=== PATIENT | female | born 1960 | race Caucasian/White ===

== ENCOUNTER 2021-02-13 11:04 | Emergency (ER) | payer MEDICARE, MEDICAID, SELFPAY ==
--- NOTE | ~2021-02-13 | CT_ITS ---
EXAMINATION: CT HEAD WITHOUT CONTRAST CLINICAL INFORMATION: Seizure COMPARISON: None TECHNIQUE: Contiguous axial imaging was performed from the skull base to vertex without intravenous administration of contrast. This CT examination was performed using dose optimization techniques as appropriate, variously including the following: *Automated exposure control *Adjustment of mA and/or kV according to patient size (this includes techniques or standardized protocols for targeted exams where dose is matched to indication/reason for exam; i.e. extremities or head) *Use of iterative reconstruction technique DLP: 690 mGy-cm FINDINGS: There is no evidence of acute intracranial hemorrhage or territorial infarction. No abnormal mass effect or midline shift is seen. Parry to white matter differentiation is well preserved. No extra-axial fluid collections are identified. The ventricles are normal in size. There is no abnormal attenuation within the brain parenchyma. The osseous structures and soft tissues are normal. The mastoid air cells and visualized portions of the paranasal sinuses are well aerated. CT/CT head/brain wo con IMPRESSION: Unremarkable exam.
--- NOTE | ~2021-02-13 | XR_ITS ---
EXAMINATION: XR CHEST CLINICAL INFORMATION: Seizure COMPARISON: None TECHNIQUE: Frontal view of the chest was obtained. FINDINGS: The cardiac and mediastinal contours are normal. The lungs are clear. There is no pleural effusion or pneumothorax. There are degenerative changes of the spine. XR/XR chest 1V IMPRESSION: Unremarkable examination.
[2021-02-13 11:11] VITALS: BP 131/77; PULSE 68; PULSE 79; RESP 16; TEMP 36.8; O2SAT 98; BMI 43.9
--- NOTE | 2021-02-13 11:18 | ECG_ITS ---
Test Reason : chest pain Blood Pressure : / mmHG Vent. Rate : 071 BPM Atrial Rate : 071 BPM P-R Int : 162 ms QRS Dur : 084 ms QT Int : 398 ms P-R-T Axes : 024 040 059 degrees QTc Int : 432 ms Normal sinus rhythm Normal ECG No previous ECGs available Referred By: Selene Morfin Electronically Signed By:MARILY RODRIGUEZ MD
--- NOTE | 2021-02-13 11:23 | ED.GENADULT ---
HPI - General Adult General Chief complaint: Chest Pain Stated complaint: chest pain/confusion Time Seen by Provider: 02/13/21 11:20 Source: patient and EMS Mode of arrival: EMS Limitations: no limitations History of Present Illness HPI narrative: 60-year-old female brought in by ambulance for evaluation of feeling impending seizure. This is a 60-year-old female history of hypertension, diabetes, recently had 1st episode of tonic-clonic seizure at different hospital, patient reportedly had CPR at this hospital for 2 minutes, patient was sent home care for twice a day. Patient felt okay until this morning patient feeling his seizure is going to happen. Patient has no headache, no fever, no chills, no chest pain, no shortness of breath. Patient also declined head trauma, drinking alcohol. Related Data Previous Rx's Medication Instructions Recorded metformin 500 mg tablet 500 mg PO BID #60 tab 08/31/20 lisinopril 10 mg tablet 10 mg PO DAILY #30 tab 11/26/20 sertraline 50 mg tablet 50 mg PO DAILY #30 tab 01/13/21 Lunesta 2 mg tablet (eszopiclone) 2 mg PO BEDTIME PRN #30 tab NS 01/14/21 buspirone 10 mg tablet 10 mg PO TID #90 tab 01/21/21 ibuprofen 600 mg tablet 600 mg PO TID PRN #20 tab 02/13/21 lorazepam 0.5 mg tablet (Ativan) 0.5 mg PO TID PRN #14 tab 02/13/21 Allergies Allergy/AdvReac Type Severity Reaction Status Date / Time No Known Allergies Allergy Verified 01/13/21 22:57 Review of Systems Review of Systems: All other systems are reviewed and are negative Constitutional: Reports as per HPI and Reports no additional constitutional complaints Eyes: Reports as per HPI and Reports no additional eye complaints Reports system reviewed and no additional complaints, except as documented Cardiovascular: Reports as per HPI and Reports no additional cardiovascular complaints Respiratory: Reports as per HPI and Reports no additional respiratory complaints Gastrointestinal: Reports as per HPI and Reports no additional gastrointestinal complaints Genitourinary: Reports no additional female genitourinary complaints Musculoskeletal: Reports no additional musculoskeletal complaints Skin/Breast: Reports system reviewed and no additional complaints, except as docu Psychiatric: Reports no additional psychiatric complaints Endocrine: Reports no additional endocrine complaints Hematologic/Lymphatic: Reports no additional hematologic/lymphatic complaints Allergic/Immunologic: Reports no additional allergic/immunologic complaints Reports system reviewed and no additional complaints, except as documented and Reports Abnormal speech present [facility] Past Medical History Medical History Essential hypertension Generalized anxiety disorder Insomnia Morbid obesity Type 2 diabetes mellitus without complication, without long-term current use of insulin Surgical History History of back surgery Status post open reduction and internal fixation (ORIF) of fracture Family History Family History Other Unknown family medical history Social History Social History Housing: House Alcohol intake: never Patient Tobacco Use Status: Never used Tobacco Advance Directives: Yes Advance Directives Information Provided: No Advance Directives on File: No Patient : No Current occupational status: disabled Physical Exam Vital Signs: Vital Signs: Last Vital Signs Temp 98.2 F 02/13/21 11:11 Pulse 79 02/13/21 11:11 Resp 16 02/13/21 11:11 BP 131/77 02/13/21 11:11 Pulse Ox 98 02/13/21 11:11 Body Mass Index 43.9 Vital signs have been reviewed as appeared to be correct. Blood pressure normal. Heart rate normal. Respiration rate normal. Temperature normal. Oxygen saturation normal. Appearance: Alert. Oriented X3. No acute distress. Head: Normal external exam. Normocephalic. Atraumatic. No Junior signs noted. No raccoon eyes noted Eyes: PERRLA. EOMI. Conjunctiva and sclera normal. Eyelids normal. ENT: TM's Normal. Pharynx normal. Uvula midline. Moist mucous membranes. No trismus noted. No drooling noted. No muffled voice noted. Neck: Normal inspection. Neck supple. FROM. No adenopathy. Thyroid Normal. No meningeal signs. No neck mass noted. CVS: Normal heart rate and rhythm. Heart sound normal. No murmurs noted. Pulses normal throughout. Respiratory: No respiratory distress. Painless inspiration. Breath sounds normal. No wheezes/rales/rhonchi noted. Chest with reproducible tenderness diffusely on the chest. No accessory muscle usage noted or decreased air movement noted. Abdomen: Soft and nontender. Bowel sounds normal in all 4 quadrants. No distention noted. No organomegaly noted. No visible injury noted. Back: No CVA tenderness. Full range of motion noted. Skin: Skin warm and dry. Normal skin color. Normal skin turgor. No rashes/lesions/lacerations noted. Extremities: No lower extremity edema. Extremities exhibit normal range of motion. Extremities nontender. Neuro: Oriented X 3. Cranial nerve exam: II-XII are grossly intact No motor deficit. No sensory deficit. Reflexes normal. Course Course Course Narrative: 60-year-old female presented for evaluation of recently diagnosed seizure. Patient never had seizure today, patient was very anxious that is controlled with Ativan in the emergency department, patient has unremarkable workup including cardiac and neurological, patient was instructed to continue with Keppra as an outpatient, will add few pills of Ativan to help patient's anxiety. Patient been having also chest contusion from the recent CPR was performed on the patient patient was instructed to take ibuprofen and Tylenol. Medical Decision Making Medical Records Medical records reviewed: Yes I reviewed the patient's medical records. Lab Data Lab results reviewed: Yes I reviewed the patient's lab results. Result diagrams: 02/13/21 11:24 02/13/21 11:24 Labs: Lab Results 02/13/21 02/13/21 02/13/21 Range/Units 11:24 11:24 11:24 WBC 6.6 (4.8-10.8) X10*3/uL RBC 4.81 (4.20-5.50) X10*6/uL Hgb 13.7 (12.0-16.0) g/dl Hct 41.5 (37.0-47.0) % MCV 86.3 (80.0-98.0) fL MCH 28.5 (27.0-33.0) pg MCHC 33.0 (31.0-35.0) g/dl RDW 12.9 (11.0-16.0) % Plt Count 239 (160-400) X10*3/uL MPV 10.2 (9.4-12.3) fL Immature Gran % (Auto) 0.3 (0.0-0.4) % Neut % (Auto) 60.0 (45-73) % Lymph % (Auto) 30.7 (20-40) % Mcintosh % (Auto) 8.2 (2-11) % Eos % (Auto) 0.5 (0-4) % Baso % (Auto) 0.3 (0-2) % Lymph # (Auto) 2.0 (1.2-4.9) X10*3/uL Mcintosh # (Auto) 0.5 (0.1-1.2) X10*3/uL Eos # (Auto) 0.0 (0.0-0.4) X10*3/uL Baso # (Auto) 0.0 (0.0-0.2) X10*3/uL Abs Immat Gran (auto) 0.02 (0.00-0.03) X10*3/uL Absolute Neuts (auto) 3.98 (2.0-8.3) x10*3/uL Absolute Nucleated RBC 0.000 (0.0-0.012) X10*3/uL Nucleated RBC % (auto) 0.0 (0.0-0.2) /100WBC Sodium 135 (135-145) mmol/L Potassium 4.4 (3.3-5.1) mmol/L Chloride 101 (96-108) mmol/L Carbon Dioxide 25 (22-29) mmol/L Anion Gap 13 (12-20) BUN 15 (9-16) mg/dL Creatinine 0.82 (0.5-1.4) mg/dL Estim Creat Clear Calc 84.7 Estimated GFR > 60 Random Glucose 118 H (60-115) mg/dL Calcium 9.6 (8.4-10.2) mg/dL Total Bilirubin 0.3 (0.0-1.0) mg/dL Direct Bilirubin < 0.2 (0.0-0.5) mg/dL AST 34 H (5-31) U/L ALT 85 H (0-31) U/L Alkaline Phosphatase 76 (39-117) U/L Troponin I High Sens Cancelled B-Natriuretic Peptide (<100) pg/mL Total Protein 7.5 (6.5-8.0) g/dL Albumin 4.6 (3.5-5.0) g/dL Lipase 36 (8-78) U/L COVID-19 (CARLOS A) (Negative) COVID-19 Clin Com 02/13/21 02/13/21 Range/Units 11:24 11:24 WBC (4.8-10.8) X10*3/uL RBC (4.20-5.50) X10*6/uL Hgb (12.0-16.0) g/dl Hct (37.0-47.0) % MCV (80.0-98.0) fL MCH (27.0-33.0) pg MCHC (31.0-35.0) g/dl RDW (11.0-16.0) % Plt Count (160-400) X10*3/uL MPV (9.4-12.3) fL Immature Gran % (Auto) (0.0-0.4) % Neut % (Auto) (45-73) % Lymph % (Auto) (20-40) % Mcintosh % (Auto) (2-11) % Eos % (Auto) (0-4) % Baso % (Auto) (0-2) % Lymph # (Auto) (1.2-4.9) X10*3/uL Mcintosh # (Auto) (0.1-1.2) X10*3/uL Eos # (Auto) (0.0-0.4) X10*3/uL Baso # (Auto) (0.0-0.2) X10*3/uL Abs Immat Gran (auto) (0.00-0.03) X10*3/uL Absolute Neuts (auto) (2.0-8.3) x10*3/uL Absolute Nucleated RBC (0.0-0.012) X10*3/uL Nucleated RBC % (auto) (0.0-0.2) /100WBC Sodium (135-145) mmol/L Potassium (3.3-5.1) mmol/L Chloride (96-108) mmol/L Carbon Dioxide (22-29) mmol/L Anion Gap (12-20) BUN (9-16) mg/dL Creatinine (0.5-1.4) mg/dL Estim Creat Clear Calc Estimated GFR Random Glucose (60-115) mg/dL Calcium (8.4-10.2) mg/dL Total Bilirubin (0.0-1.0) mg/dL Direct Bilirubin (0.0-0.5) mg/dL AST (5-31) U/L ALT (0-31) U/L Alkaline Phosphatase (39-117) U/L Troponin I High Sens < 3.5 B-Natriuretic Peptide 28 (<100) pg/mL Total Protein (6.5-8.0) g/dL Albumin (3.5-5.0) g/dL Lipase (8-78) U/L COVID-19 (CARLOS A) Negative (Negative) COVID-19 Clin Com See Note Imaging Data CT scan - head: Radiologist's impression: No acute intracranial pathology. Chest x-ray: Radiologist's impression: Unremarkable examination. ECG Data Attestation: I personally reviewed and interpreted this ECG as follows: Interpretation: Normal sinus rhythm at 71 beats per minutes, normal axis deviation, normal intervals, no ST-T changes. Discharge Plan Discharge Clinical Impression: Anxiety, Chest wall contusion Patient Disposition: Home, Self-Care Instructions: Anxiety (ED) Prescriptions: New lorazepam [Ativan] 0.5 mg tablet 0.5 mg PO TID PRN (Reason: anxiety) Qty: 14 RF: 0 ibuprofen 600 mg tablet 600 mg PO TID PRN (Reason: pain) Qty: 20 RF: 0 No Action lisinopril 10 mg tablet 10 mg PO DAILY Qty: 30 RF: 2 eszopiclone [Lunesta] 2 mg tablet 2 mg PO BEDTIME PRN (Reason: insomnia) Qty: 30 RF: 0 buspirone 10 mg tablet 10 mg PO TID Qty: 90 RF: 0 sertraline 50 mg tablet 50 mg PO DAILY Qty: 30 RF: 1 metformin 500 mg tablet 500 mg PO BID Qty: 60 RF: 6 Referrals: Anum Woodard MD [Primary Care Provider] - 2 days
[2021-02-13 11:29] LABS: MANUAL DIFF FLAG NO
[2021-02-13] MEDS: 0.9 % Sodium Chloride 1,000 ML 999 ML IVCONT (11:31)
[2021-02-13] MEDS: LORazepam 2 MG/ML VIAL IVPUSH (11:31)
[2021-02-13 11:34] LABS: Basophils Percent Auto 0.3 % (0-2); Eosinophils Percent Auto 0.5 % (0-4); Hematocrit 41.5 % (37.0-47.0); Hemoglobin 13.7 g/dl (12.0-16.0); Imm Gran Abs Auto 0.02 X10*3/uL (0.00-0.03); Imm Gran Pct Auto 0.3 % (0.0-0.4); Lymphocytes Percent Auto 30.7 % (20-40); Mean Corpuscular Hemoglobin 28.5 pg (27.0-33.0); Mean Corpuscular Volume 86.3 fL (80.0-98.0); Mean Platelet Volume 10.2 fL (9.4-12.3); Monocytes Absolute Auto 0.5 X10*3/uL (0.1-1.2); Monocytes Percent Auto 8.2 % (2-11); Neutrophils Absolute Auto 3.98 x10*3/uL (2.0-8.3); Platelet Count 239 X10*3/uL (160-400); Red Blood Count 4.81 X10*6/uL (4.20-5.50); Red Cell Distribution Width 12.9 % (11.0-16.0); White Blood Count 6.6 X10*3/uL (4.8-10.8)
[2021-02-13 11:51] LABS: Alanine Aminotransferase 85 U/L (0-31); Albumin Level 4.6 g/dL (3.5-5.0); Alkaline Phosphatase 76 U/L (39-117); Anion Gap 13 (12-20); Aspartate Amino Transferase 34 U/L (5-31); Bilirubin Direct < 0.2 mg/dL (0.0-0.5); Bilirubin Total 0.3 mg/dL (0.0-1.0); Blood Urea Nitrogen 15 mg/dL (9-16); Calcium 9.6 mg/dL (8.4-10.2); Carbon Dioxide 25 mmol/L (22-29); Chloride 101 mmol/L (96-108); Creatinine Clr Calc Pharmacy 84.7; Estimated Glomerular Filt Rate > 60; Glucose Random 118 mg/dL (60-115); Lipase 36 U/L (8-78); Potassium 4.4 mmol/L (3.3-5.1); Sodium 135 mmol/L (135-145); Total Protein 7.5 g/dL (6.5-8.0)
[2021-02-13 11:58] LABS: B Type Natriuretic Peptide 28 pg/mL (<100)
[2021-02-13 12:00] LABS: COVID-19 Test Negative (Negative); IDNOW Serial# 08D9AD1C
[2021-02-13] MEDS: Ibuprofen 800 MG TABLET PO (12:28)
[2021-02-13 12:40] LABS: Troponin-I High Sensitivity < 3.5 ng/L (<3.5-17.0)
[2021-02-13 13:27] VITALS: BP 159/85; PULSE 65; RESP 11; TEMP 36.3; O2SAT 97
[2021-02-13] MEDS: Acetaminophen 325 MG TABLET 650 MG PO (13:45)
== END 2021-02-13 13:56 | disposition home or self-care (01) ==
PROVIDERS: Emergency Provider Emergency Medicine; PCP Internal Medicine
DX: R56.9 Unspecified convulsions (principal); R07.9 Chest pain, unspecified; R51.9 Headache, unspecified; Z79.899 Other long term (current) drug therapy; Z20.822 Contact with and (suspected) exposure to COVID-19
CPT/HCPCS: 36415; 70450; 71045; 80048; 80076; 83690; 83880; 84484; 85025; 87635; 93005; 96361; 96374; 99284; 99285; J2060

== ENCOUNTER 2021-02-19 08:08 | Outpatient (REF) | payer MEDICARE, MEDICAID, SELFPAY ==
[2021-02-19 12:04] LABS: Alanine Aminotransferase 36 U/L (0-31); Albumin Level 4.7 g/dL (3.5-5.0); Alkaline Phosphatase 110 U/L (39-117); Anion Gap 16 (12-20); Aspartate Amino Transferase 21 U/L (5-31); Bilirubin Total 0.5 mg/dL (0.0-1.0); Blood Urea Nitrogen 17 mg/dL (9-16); Calcium 10.3 mg/dL (8.4-10.2); Carbon Dioxide 30 mmol/L (22-29); Chloride 100 mmol/L (96-108); Cholesterol 258 mg/dL; Estimated Average Glucose 117 mg/dL; Estimated Glomerular Filt Rate > 60; Glucose Fasting 117 mg/dL (60-99); HDL Cholesterol 47 mg/dL; Hemoglobin A1c % 5.7 %; LDL Cholesterol Calculated 158 mg/dl; Potassium 5.8 mmol/L (3.3-5.1); Sodium 140 mmol/L (135-145); Triglycerides 267 mg/dL
[2021-02-19 12:26] LABS: TSH reflex Free T4 1.78 uIU/mL (0.32-4.0); Vitamin D 25-OH Total 16.3 ng/mL (>30)
[2021-02-19 12:35] LABS: Creatinine Urine 116.41 mg/dL; Microalbum/Creatinine Ratio Ur 8.5 ug/mg cr
[2021-02-19 13:09] LABS: Folate 9.9 ng/mL (> or = 4.0); Vitamin B12 742 pg/mL (200-900)
== END 2021-02-19 08:09 | disposition home or self-care (01) ==
LOC: HO.HMGCLDS 08:08
PROVIDERS: PCP Internal Medicine; Visit Provider Internal Medicine
DX: E11.9 Type 2 diabetes mellitus without complications (principal); I10 Essential (primary) hypertension; G40.909 Epilepsy, unspecified, not intractable, without status epilepticus; E66.01 Morbid (severe) obesity due to excess calories; Z78.0 Asymptomatic menopausal state
CPT/HCPCS: 36415; 80053; 80061; 82043; 82306; 82607; 82746; 83036; 84443

== ENCOUNTER → 2021-04-14 13:46 | Outpatient (BNVA) | payer MEDICARE, MEDICAID, SELFPAY | PROVIDERS: PCP Internal Medicine; Referring Provider Internal Medicine; Visit Provider Internal Medicine Cardiovascular Disease | DX: I46.9 Cardiac arrest, cause unspecified (principal); R06.00 Dyspnea, unspecified | CPT/HCPCS: 99202 ==

== ENCOUNTER 2021-04-20 09:14 | Outpatient (REF) | payer MEDICARE, MEDICAID, SELFPAY ==
[2021-04-20 12:17] LABS: Anion Gap 12 (12-20); Blood Urea Nitrogen 16 mg/dL (9-16); Calcium 10.4 mg/dL (8.4-10.2); Carbon Dioxide 29 mmol/L (22-29); Chloride 104 mmol/L (96-108); Estimated Glomerular Filt Rate > 60; Glucose Random 104 mg/dL (60-115); Potassium 4.9 mmol/L (3.3-5.1); Sodium 140 mmol/L (135-145)
[2021-04-21 07:26] LABS: Calcium, Ionized 5.2 mg/dL (4.8-5.6)
[2021-04-21 11:37] LABS: Calcium (PTHI) 10.3 mg/dL (8.6-10.4); PTHI 16 pg/mL (14-64)
== END 2021-04-20 09:15 | disposition home or self-care (01) ==
LOC: HO.HMGCLDS 09:14
PROVIDERS: PCP Internal Medicine; Visit Provider Internal Medicine
DX: E11.9 Type 2 diabetes mellitus without complications (principal); E83.52 Hypercalcemia; E87.5 Hyperkalemia; I10 Essential (primary) hypertension
CPT/HCPCS: 36415; 80048; 82330; 83970

== ENCOUNTER → 2021-04-23 07:30 | Outpatient (REF) | payer MEDICARE, MEDICAID, SELFPAY ==
--- NOTE | 2021-04-23 07:33 | HM_ITS ---
Total monitoring time 14 days. Underlying rhythm is sinus. Minimum heart rate 47/Min. Maximum 118/Min. Average 63/Min. No atrial fibrillation or flutter or AV blocks or pauses. Rare supraventricular ectopy with minimal burden. 5 short runs, longest 7 beats. No patient events. MTDD
== END ==
LOC: HO.CARD 07:30
PROVIDERS: PCP Internal Medicine; Visit Provider Internal Medicine Cardiovascular Disease
DX: I46.9 Cardiac arrest, cause unspecified (principal); R00.2 Palpitations
CPT/HCPCS: 93246

== ENCOUNTER → 2021-05-03 13:23 | Outpatient (BNVA) | payer MEDICARE, MEDICAID, SELFPAY | PROVIDERS: PCP Internal Medicine; Visit Provider Advanced Practice Midwife ==

== ENCOUNTER → 2021-05-26 08:24 | Outpatient (REF) | payer MEDICARE, MEDICAID, SELFPAY ==
--- NOTE | 2021-05-26 08:27 | CA_ITS ---
Acquisition Time: 2021-05-26 08:31:50 Total Exercise Time: 00:05:00 Test Indications: FAMILY HX CAD, HTN, HYPERLIPIDEM Medications: SEE CHART Protocol: TRUPTI Max HR: 139 BPM 86% of Pred: 160 BPM Max BP: 164/068 mmHG Max Work Load: 7.0 METS Exercise stress test with exercise 5 min of Trupti protocol, with moderate shortness of breath, no chest discomfort, without arrythmia, with normotensive response to exercise, without EKG changes meeting criteria for ischemia. Breathing normalized in recovery. Test reviewed with Dr Lopez. Referred By: Adin Lopez Overread By: AKI LEIGH
== END ==
LOC: HO.CARD 08:24
PROVIDERS: Visit Provider Internal Medicine Cardiovascular Disease
DX: R06.00 Dyspnea, unspecified (principal)
CPT/HCPCS: 93017

== ENCOUNTER 2021-06-09 08:34 | Outpatient (REF) | payer MEDICARE, MEDICAID, SELFPAY ==
--- NOTE | ~2021-06-09 | MM_ITS ---
EXAMINATION: MM SCREENING DIGITAL BREAST TOMOSYNTHESIS, BILATERAL CLINICAL INFORMATION: Screening. Asymptomatic. No outside images available. Age 60. No known family history breast cancer. The lifetime risk of breast cancer based on the Tyrer-Cuzick Model is 9%. COMPARISON: None. TECHNIQUE: Digital breast tomosynthesis is performed in both the craniocaudal and mediolateral oblique views along with computer-aided detection (CAD). Synthesized 2D images are generated from the tomosynthesis. Additional bilateral CC and additional bilateral MLO views are obtained. FINDINGS: There are scattered areas of fibroglandular density (ACR BI-RADS breast composition Category b). There are some scattered bilateral fine fibronodular densities. There is no significant mass or architectural abnormality. There are scattered bilateral round and probable dermal calcifications. The axilla and skin contours are unremarkable. MM/MM tomosynthesis screening BI IMPRESSION: No mammographic evidence of malignancy. ASSESSMENT: BI-RADS 2: Benign RECOMMENDATION: Routine annual mammography screening. This patient's information was entered into a reminder system with a target due date for their next mammogram.
== END 2021-06-09 08:35 | disposition home or self-care (01) ==
LOC: HO.MAMMO 08:34
PROVIDERS: Visit Provider Internal Medicine
DX: Z12.31 Encounter for screening mammogram for malignant neoplasm of breast (principal)
CPT/HCPCS: 77063; 77067

== ENCOUNTER → 2021-06-10 10:37 | Outpatient (BNVA) | payer MEDICARE, MEDICAID, SELFPAY | PROVIDERS: PCP Internal Medicine; Visit Provider Nurse Practitioner Family | DX: G47.00 Insomnia, unspecified (principal); R40.0 Somnolence; F41.9 Anxiety disorder, unspecified; E66.01 Morbid (severe) obesity due to excess calories; Z68.41 Body mass index [BMI] 40.0-44.9, adult; Z79.899 Other long term (current) drug therapy | CPT/HCPCS: 99202 ==

== ENCOUNTER → 2021-06-24 10:18 | Outpatient (BNVA) | payer MEDICARE, MEDICAID, SELFPAY | PROVIDERS: PCP Internal Medicine; Referring Provider Internal Medicine; Visit Provider Internal Medicine Cardiovascular Disease | DX: G40.909 Epilepsy, unspecified, not intractable, without status epilepticus (principal); I10 Essential (primary) hypertension | CPT/HCPCS: 99212 ==

== ENCOUNTER 2021-08-16 07:27 | Outpatient (REF) | payer MEDICARE, MEDICAID, SELFPAY ==
[2021-08-16 12:07] LABS: Alanine Aminotransferase 24 U/L (0-31); Albumin Level 4.2 g/dL (3.5-5.0); Alkaline Phosphatase 48 U/L (39-117); Anion Gap 14 (12-20); Aspartate Amino Transferase 18 U/L (5-31); Bilirubin Total 0.4 mg/dL (0.0-1.0); Blood Urea Nitrogen 27 mg/dL (9-16); Calcium 9.7 mg/dL (8.4-10.2); Carbon Dioxide 24 mmol/L (22-29); Chloride 104 mmol/L (96-108); Cholesterol 250 mg/dL; Estimated Glomerular Filt Rate > 60; Glucose Fasting 108 mg/dL (60-99); HDL Cholesterol 45 mg/dL; LDL Cholesterol Calculated 145 mg/dl; Potassium 4.4 mmol/L (3.3-5.1); Sodium 138 mmol/L (135-145); Total Protein 7.2 g/dL (6.5-8.0); Triglycerides 303 mg/dL
[2021-08-16 12:10] LABS: Estimated Average Glucose 120 mg/dL; Hemoglobin A1c % 5.8 %; Vitamin D 25-OH Total 40.9 ng/mL (>30)
== END 2021-08-16 07:28 | disposition home or self-care (01) ==
LOC: HO.HMGCLDS 07:27
PROVIDERS: Visit Provider Internal Medicine
DX: E11.9 Type 2 diabetes mellitus without complications (principal); I10 Essential (primary) hypertension; E55.9 Vitamin D deficiency, unspecified; E78.5 Hyperlipidemia, unspecified
CPT/HCPCS: 36415; 80053; 80061; 82306; 83036

== ENCOUNTER → 2021-08-18 20:08 | Outpatient (REF) | payer MEDICARE, MEDICAID, SELFPAY | LOC: HO.SL 20:08 | PROVIDERS: Visit Provider Nurse Practitioner Family | DX: G47.33 Obstructive sleep apnea (adult) (pediatric) (principal); G47.00 Insomnia, unspecified | CPT/HCPCS: 95811 ==

== ENCOUNTER → 2021-09-08 08:41 | Outpatient (BNVA) | payer MEDICARE, MEDICAID, SELFPAY | PROVIDERS: PCP Internal Medicine; Visit Provider Nurse Practitioner Family | DX: G47.33 Obstructive sleep apnea (adult) (pediatric) (principal); G47.00 Insomnia, unspecified; E66.01 Morbid (severe) obesity due to excess calories; Z68.41 Body mass index [BMI] 40.0-44.9, adult; Z99.89 Dependence on other enabling machines and devices | CPT/HCPCS: 99212 ==

== ENCOUNTER 2021-12-10 06:46 | Outpatient (REF) | payer MEDICARE, MEDICAID, SELFPAY ==
[2021-12-10 12:03] LABS: Alanine Aminotransferase 27 U/L (0-31); Anion Gap 14 (12-20); Aspartate Amino Transferase 20 U/L (5-31); Blood Urea Nitrogen 17 mg/dL (9-16); Calcium 9.3 mg/dL (8.4-10.2); Carbon Dioxide 28 mmol/L (22-29); Chloride 103 mmol/L (96-108); Cholesterol 188 mg/dL; Estimated Glomerular Filt Rate > 60; Glucose Fasting 124 mg/dL (60-99); HDL Cholesterol 40 mg/dL; LDL Cholesterol Calculated 81 mg/dl; Potassium 4.5 mmol/L (3.3-5.1); Sodium 140 mmol/L (135-145); Triglycerides 336 mg/dL
[2021-12-10 12:22] LABS: Microalbum/Creatinine Ratio Ur 19.6 ug/mg cr
[2021-12-10 12:25] LABS: Vitamin D 25-OH Total 25.6 ng/mL (>30)
== END 2021-12-10 06:47 | disposition home or self-care (01) ==
LOC: HO.HMGCLDS 06:46
PROVIDERS: PCP Internal Medicine; Visit Provider Internal Medicine
DX: E55.9 Vitamin D deficiency, unspecified (principal); E66.01 Morbid (severe) obesity due to excess calories; E78.5 Hyperlipidemia, unspecified; F41.1 Generalized anxiety disorder; I10 Essential (primary) hypertension; E11.9 Type 2 diabetes mellitus without complications
CPT/HCPCS: 36415; 80048; 80061; 82043; 82306; 84450; 84460

== ENCOUNTER → 2021-12-13 09:33 | Outpatient (BNVA) | payer MEDICARE, MEDICAID, SELFPAY | PROVIDERS: PCP Internal Medicine; Referring Provider Internal Medicine; Visit Provider Internal Medicine Cardiovascular Disease | DX: I10 Essential (primary) hypertension (principal); R56.9 Unspecified convulsions; R53.83 Other fatigue | CPT/HCPCS: 93005; 99212 ==

== ENCOUNTER 2022-01-29 16:50 | Emergency (ER) | payer MEDICARE, MEDICAID, SELFPAY ==
--- NOTE | ~2022-01-29 | CT_ITS ---
EXAMINATION: CT head/brain wo IV con, CT cervical spine wo IV con INDICATION INFORMATION: Reason for Exam head trauma COMPARISON: CT brain 02/13/2021 TECHNIQUE: Separate noncontrast CT examinations of the head and cervical spine were performed. Coronal and sagittal images were created for each examination at the technologist workstation. This CT examination was performed using dose optimization techniques as appropriate, variously including the following: *Automated exposure control *Adjustment of mA and/or kV according to patient size (this includes techniques or standardized protocols for targeted exams where dose is matched to indication/reason for exam; i.e. extremities or head) *Use of iterative reconstruction technique DLP: 1369 mGy-cm FINDINGS: Head: No acute osseous or soft tissue abnormality. The mastoid air cells and visualized portions of the paranasal sinuses are well aerated. There is no evidence of acute intracranial hemorrhage or territorial infarction. No abnormal mass effect or midline shift is seen. Parry to white matter differentiation is well preserved. No extra-axial fluid collections are identified. No hydrocephalus. Cervical spine: There is no evidence of acute cervical spine fracture. Vertebral bodies remain normal in height. Loss of the usual cervical spine lordosis. Multilevel loss of disc space height. No pre- or paravertebral soft tissue abnormality is identified. Visualized portions of the lung apices are unremarkable. The thyroid gland is unremarkable. CT/CT head/brain wo IV con IMPRESSION: 1. No acute intracranial abnormality. 2. No cervical spine fracture. 3. Loss of usual cervical spine lordosis which may be due to positioning or muscle spasm.
--- NOTE | ~2022-01-29 | CT_ITS ---
EXAMINATION: CT head/brain wo IV con, CT cervical spine wo IV con INDICATION INFORMATION: Reason for Exam head trauma COMPARISON: CT brain 02/13/2021 TECHNIQUE: Separate noncontrast CT examinations of the head and cervical spine were performed. Coronal and sagittal images were created for each examination at the technologist workstation. This CT examination was performed using dose optimization techniques as appropriate, variously including the following: *Automated exposure control *Adjustment of mA and/or kV according to patient size (this includes techniques or standardized protocols for targeted exams where dose is matched to indication/reason for exam; i.e. extremities or head) *Use of iterative reconstruction technique DLP: 1369 mGy-cm FINDINGS: Head: No acute osseous or soft tissue abnormality. The mastoid air cells and visualized portions of the paranasal sinuses are well aerated. There is no evidence of acute intracranial hemorrhage or territorial infarction. No abnormal mass effect or midline shift is seen. Parry to white matter differentiation is well preserved. No extra-axial fluid collections are identified. No hydrocephalus. Cervical spine: There is no evidence of acute cervical spine fracture. Vertebral bodies remain normal in height. Loss of the usual cervical spine lordosis. Multilevel loss of disc space height. No pre- or paravertebral soft tissue abnormality is identified. Visualized portions of the lung apices are unremarkable. The thyroid gland is unremarkable. CT/CT cervical spine wo IV con IMPRESSION: 1. No acute intracranial abnormality. 2. No cervical spine fracture. 3. Loss of usual cervical spine lordosis which may be due to positioning or muscle spasm.
[2022-01-29 16:56] VITALS: BP 134/80; PULSE 70; RESP 18; TEMP 37.2; O2SAT 96; BMI 37.8
--- NOTE | 2022-01-29 17:20 | PC.NURSE ---
Pt offered wheelchair prior in triage. Pt refused.
[2022-01-29] MEDS: Lidocaine 4 % Patch ADH..PATCH 1 PATCH TRANSDERMA (18:12)
[2022-01-29] MEDS: Ketorolac Tromethamine 15 MG/ML VIAL IM (18:13)
[2022-01-29] MEDS: Acetaminophen 325 MG TABLET 975 MG PO (18:13)
[2022-01-29 18:18] VITALS: BP 131/90; PULSE 84; RESP 16; O2SAT 98
--- NOTE | 2022-01-29 18:18 | ED.HEATRA ---
HPI - Head Injury General Chief complaint: Head Injury Stated complaint: head and neck inj sent from urgent care Time Seen by Provider: 01/29/22 18:02 Source: patient Mode of arrival: ambulatory History of Present Illness HPI Narrative: 61-year-old female arrives from urgent care with a C-collar in place that she drove with after she was at [employer] and reached for a filter picture that was on the top shelf and she states 4-5 boxes came down at once striking her on the head and shoulders and patient lost her balance and fell but denies any loss of consciousness but is now complaining of a headache and denies any visual disturbance. Related Data Home Medications Medication Instructions Recorded Confirmed levetiracetam 500 mg tablet 500 mg PO BID 06/10/21 12/13/21 (Keppra) fluticasone propionate 50 spray intranasal 12/13/21 12/13/21 mcg/actuation nasal spray,suspension Previous Rx's Medication Instructions Recorded blood pressure test kit medium and #1 ea 08/30/21 large cuffs (Buzznie Arm Blood Pressure Monitor kit) lisinopril 20 mg tablet 20 mg PO DAILY #90 tabs 09/10/21 carvedilol 3.125 mg tablet 3.125 mg PO BID 90 days #180 tabs 10/22/21 quetiapine 25 mg tablet 25 mg PO BEDTIME #30 tabs 11/23/21 metformin 500 mg tablet 500 mg PO BID #180 tabs 12/03/21 amlodipine 5 mg tablet 2.5 mg PO DAILY #90 tabs 12/13/21 buspirone 10 mg tablet 10 mg PO TID #90 tabs 12/17/21 sertraline 100 mg tablet 100 mg PO DAILY #30 tabs 12/21/21 gabapentin 300 mg capsule 300 mg PO TID #90 caps 01/11/22 nabumetone 500 mg tablet 500 mg PO BID PRN joint pain #60 01/12/22 tabs rosuvastatin 5 mg tablet 5 mg PO Q2D 90 days #45 tabs 01/20/22 Allergies Allergy/AdvReac Type Severity Reaction Status Date / Time No Known Allergies Allergy Verified 12/13/21 09:47 Review of Systems Review of Systems: Pertinent positives and negatives as stated in HPI 10 point review of systems is otherwise negative. [facility] Past Medical History Source: nursing notes reviewed Medical History Dyslipidemia Essential hypertension Family history of early CAD Family history of uterine cancer Generalized anxiety disorder Insomnia Morbid obesity RUY (obstructive sleep apnea) Polyarthralgia Seizure disorder Type 2 diabetes mellitus without complication, without long-term current use of insulin Vitamin D deficiency Surgical History History of back surgery Status post open reduction and internal fixation (ORIF) of fracture Family History Family History Maternal Aunt History of breast cancer Other Unknown family medical history Social History Social History Housing: House Alcohol intake: never Patient Tobacco Use Status: Never used Tobacco e-Cigarette/Vaping Use: Never Used Advance Directives: No Advance Directives Information Provided: No service: No Current occupational status: disabled Cognitive needs: No Hearing needs: No Vision needs: No Physical Exam Vital Signs: Vital Signs: Last Vital Signs Temp 98.9 F 01/29/22 16:56 Pulse 84 01/29/22 18:18 Resp 16 01/29/22 18:18 BP 131/90 H 01/29/22 18:18 Pulse Ox 98 01/29/22 18:18 O2 Del Method 01/29/22 18:18 BMI result Body Mass Index 37.8 VITAL SIGNS: Reviewed. GENERAL: Well developed, well nourished, in no acute distress. HEAD: Normocephalic/atraumatic EYES: PERRLA, EOMI EARS: Ext canals without abnormality OROPHARYNX: no oral lesions noted, posterior pharynx clear NECK: C-collar in place without midline cervical spine tenderness, no adenopathy LUNGS: Normal breath sounds. No adventitious sounds or accessory muscle use. SpO2<96> CARDIOVASCULAR: Regular rate and rhythm without noted murmurs ABDOMEN: Soft, non-tender, non-distended with bowel sounds. MUSCULOSKELETAL: No tenderness, deformities, or effusions noted on gross inspection. EXTREMITIES: No cyanosis, clubbing or edema. SKIN: Inspection of the skin reveals no rashes NEUROLOGIC: Alert and oriented x 4. Strength and sensation to light touch were grossly intact x 4. Course Course Course Narrative: 61-year-old female with history and clinical presentation consistent with minor head trauma and on review of all CT imaging there are no acute findings. Patient received combination analgesics as well as a lidocaine patch for further relief of her pain. 1820: After review of CT c-spine imaging that demonstrated no acute findings and exam was without midline tenderness on palpation or on ROM. No focal neurological deficits to suggest spinal cord injury. On re-evaluation she states the pain has improved and she is otherwise discharged home in stable condition without any neuro deficits or other concerning symptoms. Discharge Plan Discharge Clinical Impression: Minor head injury Patient Disposition: Home, Self-Care Instructions: Head Injury (ED) Additional Instructions: 1. Tylenol 1000 mg, orally, every 6 hours as needed for pain control. Do not exceed 4000 mg within 24 hours. 2. Ibuprofen 400 mg, orally with milk or food, every 6 hours as needed for pain control. You may take this medication with Tylenol. 3. Lidocaine patch, apply to area of maximal tenderness as directed on the outside packaging. 4. Please follow-up with your primary care provider in the next 1-2 days for re-evaluation further outpatient management. Return to the ER for worsening symptoms. Prescriptions: No Action (DME) blood pressure kit med and lrg [Deluxe Arm Blood Pressure Mon] Kit See Rx Instructions .Route Qty: 1 0RF Rx Instructions: check blood pressure as directed lisinopril 20 mg tablet 20 mg PO DAILY Qty: 90 1RF carvedilol 3.125 mg tablet 3.125 mg PO BID 90 Days Qty: 180 3RF quetiapine 25 mg tablet 25 mg PO BEDTIME Qty: 30 0RF metformin 500 mg tablet 500 mg PO BID Qty: 180 1RF buspirone 10 mg tablet 10 mg PO TID Qty: 90 5RF sertraline 100 mg tablet 100 mg PO DAILY Qty: 30 1RF gabapentin 300 mg capsule 300 mg PO TID Qty: 90 3RF nabumetone 500 mg tablet 500 mg PO BID PRN (Reason: joint pain) Qty: 60 0RF rosuvastatin 5 mg tablet 5 mg PO Q2D 90 Days Qty: 45 1RF levetiracetam [Keppra] 500 mg tablet 500 mg PO BID fluticasone propionate 50 mcg/actuation spray,suspension intranasal amlodipine 5 mg tablet 2.5 mg PO DAILY Qty: 90 1RF Referrals: Anum Woodard MD [Primary Care Provider] -
== END 2022-01-29 19:10 | disposition home or self-care (01) ==
PROVIDERS: Emergency Provider Student in an Organized Health Care Education/Training Program; PCP Internal Medicine
DX: S09.90XA Unspecified injury of head, initial encounter (principal); W20.8XXA Other cause of strike by thrown, projected or falling object, initial encounter; I10 Essential (primary) hypertension; E11.9 Type 2 diabetes mellitus without complications; E66.9 Obesity, unspecified; Z68.37 Body mass index [BMI] 37.0-37.9, adult; Y93.89 Activity, other specified; Y92.512 Supermarket, store or market as the place of occurrence of the external cause; Y99.8 Other external cause status; Z79.899 Other long term (current) drug therapy; Z79.84 Long term (current) use of oral hypoglycemic drugs
CPT/HCPCS: 70450; 72125; 96372; 99284; J1885

== ENCOUNTER 2022-03-08 11:24 | Outpatient (AMB) | payer MEDICARE, MEDICAID, SELFPAY ==
--- OUTSIDE RECORDS SUMMARY | 2022-03-08 11:26 | XMS_ITS | Continuity of Care Document ---
:1960 Author Organization [facility] Address [address] [place] [id number]- Care Team Providers Name Role Phone Not on Staff, PCP Primary Care Physician Unavailable Encounter [facility] [place] Date(s): 08/11/20 - 09/10/[address] [address] Attending Physician: Alyce Triana Admitting Physician: Alyce Triana Referring Physician: AdmtrAlyce Allergies, Adverse Reactions, Alerts Substance Reaction Severity Status Percocet Active oxyCODONE Active Immunizations Not Given Vaccine Date Status Refusal Reason pneumococcal 23-valent vaccine 05/21/20 Not Given P atient Refuses influenza virus vaccine, inactivated 05/21/20 Not Given Patient Refuses Medications acetaminophen 325 mg oral tablet 975 mg, 3, tablet, By Mouth, Every 6 hours, Refills 0, Maintenance, 05/23/20 9:22:00 EST, Partial fill upon patient request if the prescription is for a schedule II opioid drug. Start Date: 05/23/20 Status: Orderedaspirin 325 mg oral delayed release tablet 325 mg, 1, tablet, By Mouth, Daily, # 30 tablet, Refills 0, Tot. Refills 0, Maintenance, 05/19/20 9:20:00 EST, Route to Pharmacy Electronically, [facility], Partial fill upon patient request if the prescription is for a schedule II opioi... Start Date: 05/19/20 Status: Ordereddocusate sodium 100 mg oral capsule 100 mg, 1, capsule, By Mouth, 2 times a day, # 28 capsule, Refills 0, Tot. Refills 0, Maintenance, 05/19/20 9:18:00 EST, Route to Pharmacy Electronically, [facility], Partial fill upon patient request if the prescription is for a schedul... Start Date: 05/19/20 Stop Date: 06/02/20 Status: OrderedmetFORMIN 500 mg oral tablet 1 tablet = 500 mg, By Mouth, 2 times a day, # 60 tablet, 1 Refills, Maintenance, 05/19/20 9:22:00 EST, Tablet, [facility], Partial fill upon patient request if the prescription is for a schedule II opioid drug., 158, cm, 05/19/20 7:17:00... Start Date: 05/19/20 Status: Ordered Problem List Condition Effective Dates Status Health Status Informant Degeneration of lumbar intervertebral Active disc(Confirmed) GERD - Gastro-esophageal reflux Active disease(Confirmed) Migraine(Confirmed) Active Obesity(Confirmed) Active
--- OUTSIDE RECORDS SUMMARY | 2022-03-08 11:26 | XMS_ITS | Continuity of Care Document ---
:1960 Author Organization [facility] Address [address] [place] [address]- Care Team Providers Name Role Phone Not on Staff, PCP Primary Care Physician Unavailable [place] [facility] [place] Date(s): 05/19/20 - 05/23/20 [facility] [address] [place] [id number] Encounter Diagnosis Opiate overdose (Final) - 05/19/20 Discharge Disposition: A-D/C Home Attending Physician: Ravi Albright MD Admitting Physician: Fernando Mulligan MD Referring Physician: Not on Staff, Referring MD Allergies, Adverse Reactions, Alerts Substance Reaction Severity Status Percocet Active oxyCODONE Active Immunizations Not Given Vaccine Date Status Refusal Reason pneumococcal 23-valent vaccine 05/21/20 Not Given P atient Refuses influenza virus vaccine, inactivated 05/21/20 Not Given Patient Refuses Medications acetaminophen 325 mg oral tablet 975 mg, Tablet, By Mouth, 05/23/20 10:00:00 EST Start Date: 05/23/20 Stop Date: 05/23/20 Status: Completedacetaminophen 325 mg oral tablet 975 mg, 3, [...] 05/19/20 9:20:00 EST, Route to Pharmacy Electronically, [facility], Partial fill upon patient request if the prescription is for a schedule II opioi... Start Date: 05/19/20 Status: OrderedDilaudid 2 mg oral tablet 2 mg, Tablet, By Mouth, Every 8 hours, PRN for Pain , Severe, Routine, 05/20/20 14:32:00 EST Start Date: 05/20/20 Stop Date: 05/23/20 Status: DiscontinuedDilaudid 2 mg oral tablet 1 tablet = 2 mg, By Mouth, Every 8 hours, PRN Pain , Severe, for 5 days, # 15 tablet, 0 Refills, Acute 05/28/20 9:22:00 EST, 05/23/20 9:22:00 EST, Tablet, [facility], Partial fill upon patient request if the prescription is for a schedul... Start Date: 05/23/20 Stop Date: 05/28/20 Status: Ordereddocusate sodium 100 mg oral capsule 100 mg, 1, capsule, By Mouth, 2 times a day, # 28 capsule, Refills 0, Tot. Refills 0, Maintenance, 05/19/20 9:18:00 EST, Route to Pharmacy Electronically, [facility], Partial fill upon patient request if the prescription is for a schedul... Start Date: 05/19/20 Stop Date: 06/02/20 Status: OrderedmetFORMIN 500 mg oral tablet 1 tablet = 500 mg, By Mouth, 2 times a day, # 60 tablet, 1 Refills, Maintenance, 05/19/20 9:22:00 EST, Tablet, [facility], Partial fill upon patient request if the prescription is for a schedule II opioid drug., 158, cm, 05/19/20 7:17:00... Start Date: 05/19/20 Status: Ordered Problem List Condition Effective Dates Status Health Status Informant Degeneration of lumbar intervertebral Active disc(Confirmed) GERD - Gastro-esophageal reflux Active disease(Confirmed) Migraine(Confirmed) Active Obesity(Confirmed) Active Results Radiology Reports Exam Date Time Procedure Performing Provider Status 05/19/20 11:57 PM Chest Portable Esau Alan ([facility] ed) Notes:(Chest Portable) Reason For Exam: Shortness of BreathRESULT: Chest Portable Chest Portable Reason: Shortness of Breath; Clinical Question(s): CHF COMPARISON: 03/01/2012 FINDINGS: LINES AND TUBES: None. LUNGS AND PLEURA: Low lung volumes with mild basilar atelectasis. Lungs are otherwise clear with no consolidation. No pleural effusion. No pneumothorax. HEART, MEDIASTINUM AND AGUSTÍN: Heart is at the upper limits of normal for size. Normal upper mediastinal and hilar contour. BONES AND SOFT TISSUES: No acute abnormality. IMPRESSION: No acute abnormality. WSN: [id number] Ordering Physician: Jim Varma Dictated By: Dhaval Nieves MD Dictated Date/Time: 05/20/20 0:06 am Reviewed By: Dhaval Nieves MD Signed By: Dhaval Nieves MD Signed Date/Time: 05/20/20 0:06 am Transcribed By: TOBIAS Transcribed Date/Time: 05/20/20 0:06 am Vital Signs Most recent to oldest 1 2 3 [Reference Range]: Height 156 cm 156 cm 156 cm (05/23/20 7:15 AM) (05/21/20 4:05 AM) (05/20/20 11:50 PM) Weight 114.3 kg (05/20/20 4:28 AM) Oxygen Saturation [94-100 %] 100 % 96 % 98 % (05/23/20 7:15 AM) (05/23/20 4:00 AM) (05/23/20 1:00 A M) Pulse Rate [55-90 bpm] 72 bpm 76 bpm 68 bpm (05/23/20 7:15 AM) (05/23/20 4:00 AM) (05/23/20 12:00 AM) Body Mass Index [18.5-24.99] 46.97 *>HHI* (05/20/20 4:28 AM) Blood Pressure [90-138/55-84 mm 177/79 mm Hg 167/91 mm Hg 176/98 mm Hg Hg] *H* *H* *H* (05/23/20 7:15 AM) (05/23/20 4:00 AM) (05/23/20 1:00 A M) Respiratory Rate [16-30 br/min] 20 br/min 20 br/min 20 br/min (05/23/20 10:11 AM) (05/23/20 7:15 AM) (05/23/20 7:10 AM) Temperature [96.8-100.4 DegF] 98.4 DegF 98.6 DegF 98 .2 DegF (05/23/20 7:15 AM) (05/23/20 4:00 AM) (05/22/20 11:00 PM) Liters per Minute 3 L/min 3 L/min 3 L/min (05/20/20 4:00 PM) (05/20/20 11:00 AM) (05/20/20 8:00 AM) Mode of Delivery (Oxygen) Room air Room air Room a ir (05/23/20 7:15 AM) (05/23/20 4:00 AM) (05/23/20 12:00 AM) Blood pressure sites Arm, right Arm, left Arm, left (05/23/20 7:15 AM) (05/23/20 12:00 AM) (05/22/20 4:00 PM) Temperature Route Oral Oral Oral (05/23/20 7:15 AM) (05/23/20 4:00 AM) (05/22/20 11:00 PM) Dry Weight 114.3 kg (05/20/20 4:28 AM) Weight Obtained Via Bed scale (05/20/20 4:28 AM) Dry Weight Obtained Via Bed scale (05/20/20 4:28 AM)
--- OUTSIDE RECORDS SUMMARY | 2022-03-08 11:26 | XMS_ITS | Continuity of Care Document ---
:1960 Author Organization [facility] Address [address] [place] [address]- Care Team Providers Name Role Phone Not on Staff, PCP Primary Care Physician Unavailable Encounter [facility] [place] Date(s): 05/15/20 - 05/19/[address] [id number] Encounter Diagnosis Ankle fracture, right (Final) - 05/15/20 Fall (Final) - 05/15/20 Closed displaced trimalleolar fracture of right ankle (Discharge Diagnosis) - 05/17/20 Ankle syndesmosis disruption (Discharge Diagnosis) - 05/17/20 Discharge Disposition: A-D/C Home Attending Physician: Fernando Wesley MD Admitting Physician: Fernando Wesley MD Referring Physician: Not on Staff, Referring MD Allergies, Adverse Reactions, Alerts Substance Reaction Severity Status Percocet Active oxyCODONE Active Medications acetaminophen 325 mg oral tablet 650 mg, By Mouth, Every 6 hours, # 60 tablet, Refills 0, Tot. Refills 0, Acute 05/26/20 9:18:00 EST,05/19/20 9:16:00 EST, Route to Pharmacy Electronically, [facility], Partial fill upon patient request if the prescription is for a sched... Start Date: 05/19/20 Stop Date: 05/26/20 Status: OrderedAcetaminophen Tablet 650 mg, Tablet, By Mouth, 05/19/20 10:15:00 EST Start Date: 05/19/20 Stop Date: 05/19/20 Status: Completedaspirin 325 mg oral delayed release tablet 325 mg, 1, tablet, By Mouth, Daily, # 30 tablet, Refills 0, Tot. Refills 0, Maintenance, 05/19/20 9:20:00 EST, Route to Pharmacy Electronically, [facility], Partial fill upon patient request if the prescription is for a schedule II opioi... Start Date: 05/19/20 Status: Ordereddocusate sodium 100 mg oral capsule 100 mg, 1, capsule, By Mouth, 2 times a day, # 28 capsule, Refills 0, Tot. Refills 0, Maintenance, 05/19/20 9:18:00 EST, Route to Pharmacy Electronically, [facility], Partial fill upon patient request if the prescription is for a schedul... Start Date: 05/19/20 Stop Date: 06/02/20 Status: OrderedmetFORMIN 500 mg oral tablet 1 tablet = 500 mg, By Mouth, 2 times a day, # 60 tablet, 1 Refills, Maintenance, 05/19/20 9:22:00 EST, Tablet, [facility], Partial fill upon patient request if the prescription is for a schedule II opioid drug., 158, cm, 05/19/20 7:17:00... Start Date: 05/19/20 Status: Orderedmorphine 30 mg oral tablet, immediate release See Instructions, PRN Pain , Moderate, 1 tablet By Mouth Every 3-6 hours prn pain, # 40 tablet, 0 Refills, Acute 05/26/20 9:20:00 EST, 05/19/20 9:18:00 EST, Tablet, [facility], Partial fill upon patient request if the prescription is for... Start Date: 05/19/20 Stop Date: 05/26/20 Status: OrderedMorPHINE Immediate Release Tablet 30 mg, Tablet, By Mouth, Every 3 hours, PRN for Pain , Moderate, Routine, 05/18/20 11:26:00 EST Start Date: 05/18/20 Stop Date: 05/19/20 Status: Discontinued Problem List Condition Effective Dates Status Health Status Informant Degeneration of lumbar intervertebral Active disc(Confirmed) GERD - Gastro-esophageal reflux Active disease(Confirmed) Migraine(Confirmed) Active Obesity(Confirmed) Active Diagnosis Diagnosis Type Effective Dates Health Clinical Infor mant Status Service Closed displaced Discharge 05/17/20 Non-Specified trimalleolar Diagnosis fracture of right ankle Ankle syndesmosis Discharge 05/17/20 Non-Specified disruption Diagnosis Results Radiology Reports Exam Date Time Procedure Performing Provider Status 05/16/20 5:13 PM C-Arm > 1 Hour Megan Mcclendon; Skyla (Verified) Notes:(C-Arm > 1 Hour) Reason For Exam: right ankle ORIFRESULT: C-Arm > 1 Hour Ankle Min 3 Views Right, C-Arm > 1 Hour INDICATION: 59 years years old Female with Reason: right ankle ORIF. COMPARISONS: May 15, 2020 RIGHT ankle. TECHNIQUE: Fluoroscopy support was provided in the operating room for the referring physician using the C-arm. There was no radiologist in attendance. This report is provided for documentation purposes. In addition, a total of three views of the RIGHT ankle in the frontal and lateral projections are ob tained in the OR with the C-arm. Fluoroscopy time: Nine seconds. Technologist time: One hour. FINDINGS: The distal fibular fracture is internally fixated with a lateral sideplate containing a total of eight threaded screws attaching the plate to the fibula, the last two longer screws that also traverse the distal tibial metaphysis. A separate screw traverses the fibula from anterior to posterior. The posterior malleolar fracture is not internally fixated. Ankle mortise is now well aligned. IMPRESSION: 1. C-arm study performed in the OR. 2. ORIF of distal fibula fracture. Thank you for allowing me to participate in the care of this patient. WSN: [id number] Ordering Physician: Fernando Wesley Dictated By: Negro Carreon MD Dictated Date/Time: 05/16/20 5:23 pm Reviewed By: Negro Carreon MD Signed By: Negro Carreon MD Signed Date/Time: 05/16/20 5:23 pm Transcribed By: TOBIAS Transcribed Date/Time: 05/16/20 5:20 pm Exam Date Time Procedure Performing Provider Status 05/16/20 5:13 PM Ankle Min 3 Views Right Megan Mcclendon; Skyla (V erified) Notes:(Ankle Min 3 Views Right) Reason For Exam: right ankle ORIFRESULT: Ankle Min 3 Views Right Ankle Min 3 Views Right, C-Arm > 1 Hour INDICATION: 59 years years old Female with Reason: right ankle ORIF. COMPARISONS: May 15, 2020 RIGHT ankle. TECHNIQUE: Fluoroscopy support was provided in the operating room for the referring physician using the C-arm. There was no radiologist in attendance. This report is provided for documentation purposes. In addition, a total of three views of the RIGHT ankle in the frontal and lateral projections are ob tained in the OR with the C-arm. Fluoroscopy time: Nine seconds. Technologist time: One hour. FINDINGS: The distal fibular fracture is internally fixated with a lateral sideplate containing a total of eight threaded screws attaching the plate to the fibula, the last two longer screws that also traverse the distal tibial metaphysis. A separate screw traverses the fibula from anterior to posterior. The posterior malleolar fracture is not internally fixated. Ankle mortise is now well aligned. IMPRESSION: 1. C-arm study performed in the OR. 2. ORIF of distal fibula fracture. Thank you for allowing me to participate in the care of this patient. WSN: [id number] Ordering Physician: Fernando Wesley Dictated By: Negro Carreon MD Dictated Date/Time: 05/16/20 5:23 pm Reviewed By: Negro Carreon MD Signed By: Negro Carreon MD Signed Date/Time: 05/16/20 5:23 pm Transcribed By: TOBIAS Transcribed Date/Time: 05/16/20 5:20 pm Exam Date Time Procedure Performing Provider Status 05/15/20 6:45 PM Tibia/Fibula 2 Views Right Jessica Bowling (Verified) Notes:(Tibia/Fibula 2 Views Right) Reason For Exam: with Pain;TraumaRESULT: Tibia/Fibula 2 Views Right Right knee 2 views and right lower leg 2 views dated May 15, 2020. No previous studies are available. HISTORY: Pain. FINDINGS: This examination shows a comminuted fracture of the distal fibular diaphyseal metaphyseal junction. The largest of the distal fracture fragments is displaced posteriorly approximately 25% of the shaft width. There is a minimally posteriorly displaced fracture of the posterior malleolus. On this limited study, I see no medial malleolar fracture. There is some apparent widening of the talotibial joint space.A plantar calcaneal bone spur is noted. Calcification is seen at the insertion of the Achilles tendon. The knee joint is intact. No fracture or dislocation is noted there. No joint effusion is seen. IMPRESSION: Comminuted fracture of the distal diaphyseal metaphyseal junction of the fibula with posterior displacement. Fracture of the posterior malleolus with minimal posterior and proximal displacement measuring up to3.5 mm. Further evaluation of the ankle could better be performed with dedicated views, as needed. Examination [id number] and [id number]. Thank you for allowing me to participate in the care of this patient. WSN: [id number] Ordering Physician: Marcos Suarez Dictated By: Eleazar Cronin MD Dictated Date/Time: 05/15/20 6:48 pm Reviewed By: Eleazar Cronin MD Signed By: Eleazar Cronin MD Signed Date/Time: 05/15/20 6:48 pm Transcribed By: TOBIAS Transcribed Date/Time: 05/15/20 6:45 pm Exam Date Time Procedure Performing Provider Status 05/15/20 6:45 PM Knee 1 or 2 Views Right Jessica Bowling; [facility] (Verified) Notes:(Knee 1 or 2 Views Right) Reason For Exam: with Pain;TraumaRESULT: Knee 1 or 2 Views Right Right knee 2 views and right lower leg 2 views dated May 15, 2020. No previous studies are available. HISTORY: Pain. FINDINGS: This examination shows a comminuted fracture of the distal fibular diaphyseal metaphyseal junction. The largest of the distal fracture fragments is displaced posteriorly approximately 25% of the shaft width. There is a minimally posteriorly displaced fracture of the posterior malleolus. On this limited study, I see no medial malleolar fracture. There is some apparent widening of the talotibial joint space.A plantar calcaneal bone spur is noted. Calcification is seen at the insertion of the Achilles tendon. The knee joint is intact. No fracture or dislocation is noted there. No joint effusion is seen. IMPRESSION: Comminuted fracture of the distal diaphyseal metaphyseal junction of the fibula with posterior displacement. Fracture of the posterior malleolus with minimal posterior and proximal displacement measuring up to3.5 mm. Further evaluation of the ankle could better be performed with dedicated views, as needed. Examination [id number] and [id number]. Thank you for allowing me to participate in the care of this patient. WSN: [id number] Ordering Physician: Marcos Suarez Dictated By: Eleazar Cronin MD Dictated Date/Time: 05/15/20 6:48 pm Reviewed By: Eleazar Cronin MD Signed By: Eleazar Cronin MD Signed Date/Time: 05/15/20 6:48 pm Transcribed By: TOBIAS Transcribed Date/Time: 05/15/20 6:45 pm Exam Date Time Procedure Performing Provider Status 05/15/20 4:07 PM Foot Min 3 Views Right Audrey Vick; Skyla (V erified) Notes:(Foot Min 3 Views Right) Reason For Exam: with Pain;TraumaRESULT: Foot Min 3 Views Right Right foot 3 views dated May 15, 2020. No comparison foot x-ray is available. Earlier in the day, there was a study of the ankle. HISTORY: Pain. FINDINGS: This examination shows no evidence of fracture or dislocation in the foot. A plantar calcaneal bone spur is noted. There is minimal loss of joint space in the first metatarsophalangeal joint with minimal subchondral sclerosis. The distal fibular fracture is partially imaged. There is widening of the medial joint space. IMPRESSION: No evidence of acute osseous abnormality in the foot. Fracture subluxation of the ankle is not as well imaged on this foot examination as it was on the ankle study from earlier today. Examination [id number]. Thank you for allowing me to participate in the care of this patient. WSN: [id number] Ordering Physician: Bryanna Espinoza Dictated By: Eleazar Cronin MD Dictated Date/Time: 05/15/20 4:23 pm Reviewed By: Eleazar Cronin MD Signed By: Eleazar Cronin MD Signed Date/Time: 05/15/20 4:23 pm Transcribed By: TOBIAS Transcribed Date/Time: 05/15/20 4:21 pm Exam Date Time Procedure Performing Provider Status 05/15/20 4:07 PM Ankle Min 3 Views Right Audrey Vick; Skyla ( Verified) Notes:(Ankle Min 3 Views Right) Reason For Exam: with Pain;TraumaRESULT: Ankle Min 3 Views Right Ankle Min 3 Views Right INDICATION: Fracture. COMPARISON: None. FINDINGS: There is an oblique comminuted fracture with a butterfly fragment and less than one half shaft widthposterior displacement of the dominant distal and butterfly fragment. There is an oblique fracture involving the posterior lip of the distal tibia with intra-articular extension. There is widening of the ankle mortise and syndesmosis. There is a prominent dorsal talar spur with subtle lucency through the base raising the question of avulsion. IMPRESSION: Right ankle fracture. WSN: [id number] Ordering Physician: Bryanna Espinoza Dictated By: [place] Hickman MD Dictated Date/Time: 05/15/20 4:18 pm Reviewed By: [place] Hickman MD Signed By: [place] Hickman MD Signed Date/Time: 05/15/20 4:18 pm Transcribed By: TOBIAS Transcribed Date/Time: 05/15/20 4:15 pm Vital Signs Most recent to oldest 1 2 3 4 [Reference Range]: Height 158 cm 158 cm 158 cm (05/19/20 7:17 AM) (05/19/20 6:26 AM) (05/19/20 4:34 AM) Weight 92 kg (05/16/20 2:16 PM) Oxygen Saturation 94 % 97 % 96 % [94-100 %] (05/19/20 6:26 AM) (05/19/20 4:34 AM) (05/18/20 8:20 PM) Pulse Rate [55-90 bpm] 107 bpm 101 bpm 84 bpm *H* *H* (05/18/20 8:20 PM) (05/19/20 6:26 AM) (05/19/20 4:34 AM) Body Mass Index 36.85 [18.5-24.99] *>HHI* (05/16/20 2:16 PM) Blood Pressure 129/67 mm Hg 135/52 mm Hg 114/63 mm Hg [90-138/55-84 mm Hg] (05/19/20 6:26 AM) (05/19/20 4:34 AM) (05/18/20 8:20 PM) Respiratory Rate [16-30 18 br/min 18 br/min 18 br/min br/min] (05/19/20 8:22 AM) (05/19/20 8:22 AM) (05/19/20 7:22 AM) Temperature [96.8-100.4 99.6 DegF 98.1 DegF 97.9 DegF DegF] (05/19/20 7:17 AM) (05/19/20 6:26 AM) (05/19/20 4:34 AM) Liters per Minute 0 L/min 0 L/min 0 L/min 0 L/min (05/16/20 6:15 PM) (05/16/20 6:15 PM) (05/16/20 6:00 PM) (05/16/20 6:00 PM) Mode of Delivery Room air Room air Room air (Oxygen) (05/19/20 6:26 AM) (05/19/20 4:34 AM) (05/18/20 8:20 PM) Blood pressure sites Arm, right Arm, right Arm, right (05/19/20 6:26 AM) (05/18/20 3:54 PM) (05/18/20 7:34 AM) Temperature Route Oral Oral Oral (05/19/20 7:17 AM) (05/19/20 6:26 AM) (05/19/20 4:34 AM) Dry Weight 92 kg (05/16/20 2:16 PM) Weight Obtained Via Bed scale (05/16/20 2:16 PM) Dry Weight Obtained Via Bed scale (05/16/20 2:16 PM)
--- OUTSIDE RECORDS SUMMARY | 2022-03-08 11:26 | XMS_ITS | Continuity of Care Document ---
:[address] [facility] Address [address] [place] [address]- Care Team Providers Name Role Phone Not on Staff, PCP Primary Care Physician Unavailable [place] [facility] [place] - 10/11/[address] [id number] Discharge Disposition: A-D/C Home Attending Physician: Kae Donald Admitting Physician: Kae Donald Referring Physician: Kae Donald Allergies, Adverse Reactions, Alerts Substance Reaction Severity [...] 05/19/20 9:20:00 EST, Route to Pharmacy Electronically, [facility], Partial fill upon patient request if the prescription is for a schedule II opioi... Start Date: 05/19/20 Status: Ordereddocusate sodium 100 mg oral capsule 100 mg, 1, capsule, By Mouth, 2 times a day, # 28 capsule, Refills 0, Tot. Refills 0, Maintenance, 05/19/20 9:18:00 EST, Route to Pharmacy Electronically, [facility], Partial fill upon patient request if the prescription is for a schedul... Start Date: 05/19/20 Stop Date: 06/02/20 Status: OrderedmetFORMIN 500 mg oral tablet 1 tablet = 500 mg, By Mouth, 2 times a day, # 60 tablet, 1 Refills, Maintenance, 05/19/20 9:22:00 EST, Tablet, [facility], Partial fill upon patient request if the prescription is for a schedule II opioid drug., 158, cm, 05/19/20 7:17:00... Start Date: 05/19/20 Status: Ordered Problem List Condition Effective Dates Status Health Status Informant Degeneration of lumbar intervertebral Active disc(Confirmed) GERD - Gastro-esophageal reflux Active disease(Confirmed) Migraine(Confirmed) Active Obesity(Confirmed) Active
--- NOTE | 2022-03-08 11:48 | A.OFFPC_ITS ---
Vital Signs 03/08/22 11:49 Height 5 ft 4 in Weight 236 lb BMI 40.5 BP 126/80 Blood Pressure Location Rt brachial Position Sitting Pulse 80 Pulse Source Pulse Oximeter Pulse Oximetry (%) 97 Oxygen Delivery Method Room Air Intake Visit Reasons: 3 month follow up DM, hypertension dyslipidemia Intake Note: Pt is here today for her 3 months f/u DM, lipids and HTN Allergies No Known Allergies Allergy (Verified 03/08/22 11:49) Tobacco use date assessed: 03/08/22 HPI 3 month follow up DM, hypertension dyslipidemia HPI Details 61-year-old lady with diabetes mellitus, hypertension, dyslipidemia, here today for her follow-up. Has been compliant with taking her medications, and has been following recommended diet. Has not yet had her fasting labs done, but hemoglobin A1c today is at 6.1%. [facility] Medical History (Updated 03/08/22 @ 12:34 by Anum Woodard MD) Essential hypertension Family history of early CAD Family history of uterine cancer Generalized anxiety disorder Insomnia Mixed dyslipidemia Morbid obesity RUY (obstructive sleep apnea) Polyarthralgia Seizure disorder Type 2 diabetes mellitus without complication, without long-term current use of insulin Vitamin D deficiency Surgical History History of back surgery Status post open reduction and internal fixation (ORIF) of fracture Family History Maternal Aunt History of breast cancer Other Unknown family medical history Social History Housing: House Alcohol intake: never Patient Tobacco Use Status: Never used Tobacco e-Cigarette/Vaping Use: Never Used service: No Current occupational status: disabled Cognitive needs: No Hearing needs: No Vision needs: No Questionnaire Thrive Questionnaire Date Thrive assessed: 12/08/21 JACOB-7 AMB Questionnaire JACOB-7 Date JACOB - 7 assessed: 07/06/21 Source: Developed by Drs. Alfred Lanza, Belem Mckeon, Benedict Lee and colleagues, with an educational yunier from [employer]. Physical exam (Primary Care) Vital Signs: Last Vital Signs Pulse 80 03/08/22 11:49 BP 126/80 03/08/22 11:49 Pulse Ox 97 03/08/22 11:49 Oxygen Delivery Method Room Air 03/08/22 11:49 BMI result Body Mass Index 40.5 Tobacco/Smoking Status: Tobacco use Status Tobacco use date assessed 03/08/22 03/08/22 11:55 Patient Tobacco Use Status Never used Tobacco 03/08/22 11:55 e-Cigarette/Vaping Use Never Used 03/08/22 11:55 Thrive Assessment: Date of Thrive Assessment Date Thrive assessed 12/08/21 03/08/22 11:55 Results AMB Hemoglobin A1c AMB Hemoglobin A1c 6.1 % Last Edit by Brigette Cox CMA on 03/08/22 12:20 Assessment and Plan Assessment & Plan (1) Type 2 diabetes mellitus without complication, without long-term current use of insulin: Code(s): E11.9 - Type 2 diabetes mellitus without complications Plan: Hemoglobin A1c today is at 6.1%. Continue with metformin 500 mg per tablet taken twice a day with meals. Continue with adhering to healthy eating habits and getting regular exercise. Advised to get her diabetes retinopathy screening done, will make appointment with [place] [facility]. Reminded to get her COVID booster, up-to-date with during Prev, declined getting flu vaccines. (2) Lumbago without sciatica: Code(s): M54.50 - Low back pain, unspecified Plan: Trial of applying Salonpas patch to affected area in her right lower back every 8 hours as needed. To itching exercises. (3) Mixed dyslipidemia: Code(s): E78.2 - Mixed hyperlipidemia Plan: Reminded to get fasting lipid panel done, continue with rosuvastatin 5 mg every 2 days in addition to adhering to healthy eating habits and getting regular exercise. (4) Essential hypertension: Code(s): I10 - Essential (primary) hypertension Plan: Blood pressure at goal of less than 130/80. Continue with current medication. Reinforced importance of following a low sodium diet, getting regular exercise, and lowering stress levels. Orders: Orders AMB Hemoglobin A1c Today E11.9 - Type 2 diabetes mellitus without complications Coding Level of Care Code Est Pt Level 4 (45359) Diagnoses Type 2 diabetes mellitus without complication, without long-term current use of insulin E11.9 Lumbago without sciatica M54.50 Mixed dyslipidemia E78.2 Essential hypertension I10
[2022-03-08 11:49] VITALS: BP 126/80; PULSE 80; O2SAT 97; BMI 40.5
== END 2022-03-08 12:33 | disposition home or self-care (01) ==
LOC: HO.HMGC 11:24
PROVIDERS: PCP Internal Medicine; Visit Provider Internal Medicine
DX: E11.9 Type 2 diabetes mellitus without complications (principal); M54.50 Low back pain, unspecified; E78.2 Mixed hyperlipidemia; I10 Essential (primary) hypertension
CPT/HCPCS: 99499

== ENCOUNTER 2022-04-07 09:04 | Outpatient (REF) | payer MEDICARE, MEDICAID, SELFPAY ==
[2022-04-07 11:32] LABS: Estimated Average Glucose 120 mg/dL; Hemoglobin A1c % 5.8 %
[2022-04-07 11:47] LABS: Creatinine Urine 143.92 mg/dL; Microalbum/Creatinine Ratio Ur 18.7 ug/mg cr
[2022-04-07 11:58] LABS: Alanine Aminotransferase 31 U/L (0-31); Albumin Level 4.3 g/dL (3.5-5.0); Alkaline Phosphatase 49 U/L (39-117); Anion Gap 13 (12-20); Aspartate Amino Transferase 21 U/L (5-31); Bilirubin Total 0.3 mg/dL (0.0-1.0); Blood Urea Nitrogen 19 mg/dL (9-16); Calcium 9.6 mg/dL (8.4-10.2); Carbon Dioxide 28 mmol/L (22-29); Chloride 104 mmol/L (96-108); Cholesterol 271 mg/dL; Estimated Glomerular Filt Rate > 60; Glucose Fasting 118 mg/dL (60-99); HDL Cholesterol 46 mg/dL; Potassium 4.8 mmol/L (3.3-5.1); Sodium 140 mmol/L (135-145); Total Protein 7.1 g/dL (6.5-8.0); Triglycerides 421 mg/dL; Vitamin D 25-OH Total 20.1 ng/mL (>30)
== END 2022-04-07 09:05 | disposition home or self-care (01) ==
LOC: HO.HMGCLDS 09:04
PROVIDERS: PCP Internal Medicine; Visit Provider Internal Medicine
DX: E55.9 Vitamin D deficiency, unspecified (principal); E66.01 Morbid (severe) obesity due to excess calories; E78.5 Hyperlipidemia, unspecified; F41.1 Generalized anxiety disorder; I10 Essential (primary) hypertension; E11.9 Type 2 diabetes mellitus without complications
CPT/HCPCS: 36415; 80053; 80061; 82043; 82306; 83036

== ENCOUNTER 2022-06-30 10:43 | Outpatient (REF) | payer OTHER, SELFPAY ==
--- NOTE | ~2022-06-30 | MM_ITS ---
EXAMINATION: MM SCREENING DIGITAL BREAST TOMOSYNTHESIS, BILATERAL CLINICAL INFORMATION: Screening. Asymptomatic. The lifetime risk of breast cancer based on the Tyrer-Cuzick Model is 10.8%. COMPARISON: Mammography: 06/09/2021 TECHNIQUE: Digital breast tomosynthesis is performed in both the craniocaudal and mediolateral oblique views along with computer-aided detection (CAD). Synthesized 2D images are generated from the tomosynthesis. FINDINGS: The breasts are almost entirely fatty (ACR BI-RADS breast composition Category a). There are no new significant masses, abnormal calcifications, or other abnormalities. Stable circumscribed density about the inferior aspect of the left breast medially appears stable and possible intramammary lymph node or possible dermal lesion. MM/MM tomosynthesis screening BI IMPRESSION: No significant changes from prior exam. ASSESSMENT: BI-RADS 2: Benign RECOMMENDATION: Routine annual mammography screening. This patient's information was entered into a reminder system with a target due date for their next mammogram.
== END 2022-06-30 10:44 | disposition home or self-care (01) ==
LOC: HO.MAMMO 10:43
PROVIDERS: PCP Internal Medicine; Visit Provider Internal Medicine
DX: Z12.31 Encounter for screening mammogram for malignant neoplasm of breast (principal)
CPT/HCPCS: 77063; 77067

== ENCOUNTER 2022-07-05 07:17 | Outpatient (REF) | payer OTHER, SELFPAY ==
[2022-07-05 11:58] LABS: Estimated Average Glucose 126 mg/dL; Hemoglobin A1C 148.5035 umol/L
[2022-07-05 12:16] LABS: Creatinine Urine 163.08 mg/dL; Microalbum/Creatinine Ratio Ur 61.3 ug/mg cr
[2022-07-05 12:24] LABS: Alanine Aminotransferase 43 U/L (0-31); Anion Gap 17 (12-20); Aspartate Amino Transferase 29 U/L (5-31); Blood Urea Nitrogen 22 mg/dL (9-16); Carbon Dioxide 27 mmol/L (22-29); Chloride 102 mmol/L (96-108); Cholesterol 208 mg/dL; Estimated Glomerular Filt Rate 58; Glucose Fasting 145 mg/dL (60-99); HDL Cholesterol 45 mg/dL; LDL Cholesterol Calculated 119 mg/dl; Potassium 5.5 mmol/L (3.3-5.1); Sodium 140 mmol/L (135-145); Triglycerides 223 mg/dL
[2022-07-05 12:45] LABS: Vitamin D 25-OH Total 43.5 ng/mL (>30)
== END 2022-07-05 07:18 | disposition home or self-care (01) ==
LOC: HO.HMGCLDS 07:17
PROVIDERS: PCP Internal Medicine; Visit Provider Internal Medicine
DX: E78.2 Mixed hyperlipidemia (principal); E66.01 Morbid (severe) obesity due to excess calories; I10 Essential (primary) hypertension; E11.9 Type 2 diabetes mellitus without complications; E55.9 Vitamin D deficiency, unspecified
CPT/HCPCS: 36415; 80048; 80061; 82043; 82306; 83036; 84450; 84460

== ENCOUNTER 2022-07-27 10:38 | Emergency (ER) | payer OTHER, SELFPAY ==
--- NOTE | ~2022-07-27 | CT_ITS ---
EXAMINATION: CT LUMBAR SPINE WITHOUT CONTRAST CLINICAL INFORMATION: Back pain radiating down the left side. COMPARISON: None available. TECHNIQUE: Multidetector helical imaging of the lumbar spine was obtained without intravenous contrast. Multiple axial reformats and coronal/sagittal reconstructions were created the technologist workstation for review. This CT examination was performed using dose optimization techniques as appropriate, variously including the following: *Automated exposure control. *Adjustment of mA and/or kV according to patient size (this includes techniques or standardized protocols for targeted exams where dose is matched to indication/reason for exam; i.e. extremities or head). *Use of iterative reconstruction technique. DLP: 1084 mGy-cm FINDINGS: Instrumented posterior fusion of L2-L3 with bilateral paired interpedicular screws. No evidence of hardware fracture or loosening. Disc spacers in place at L3-L4 and L4-L5. There is solid osseous fusion of the L2-L5 facets. Straightening of the normal lumbar lordosis. Mild degenerative retrolisthesis of L1 on L2. Laminectomy changes at L2. Normal anatomic alignment. No evidence of acute fracture or traumatic subluxation. The vertebral body heights are maintained. Advanced degenerative disc disease at L2-L3. Moderate degenerative disc disease at L1-L2 and L5-S1. No suspicious lytic or sclerotic osseous lesions. Moderate fatty atrophy of the posterior paraspinal musculature of the lower back. No additional significant abnormalities of the paraspinal musculature. Limited evaluation of the intra-abdominal structures without significant abnormalities. The abdominal aorta is of normal contour and caliber with moderate calcific atherosclerotic disease. AXIAL SPINAL LEVELS: L1-L2: Moderate diffuse disc bulge with posterior osseous ridging. There is moderate to severe bilateral facet joint arthropathy. There is severe bilateral neural foraminal stenosis. There is there appears to be stenosis of the subarticular zones with moderate spinal canal stenosis centrally. L2-L3: Mild diffuse disc bulge with posterior osseous ridging. The facets are fused with moderate hypertrophic change. There is moderate right and mild left neural foraminal stenosis. Posterior decompression. Evaluation of the spinal canal is limited secondary to metal artifact from the patient's hardware. L3-L4: Fused at this level. The facets are fused with moderate hypertrophic change. There is moderate bilateral neural foraminal stenosis. Evaluation of the spinal canal is limited secondary to metal artifact from the patient's hardware. L4-L5: Fused at this level. The facets are fused with moderate hypertrophic change. There is moderate left and mild right neural foraminal stenosis. Evaluation of the spinal canal is limited secondary to metal artifact from the patient's hardware. L5-S1: Mild diffuse disc bulge with posterior osseous ridging. There is severe bilateral facet joint arthropathy. There is severe bilateral neural foraminal stenosis. There appears to be mild spinal canal stenosis. CT/CT lumbar spine wo IV con IMPRESSION: 1. Instrumented posterior fusion of L2-L3. No evidence of hardware fracture or loosening. Solid osseous fusion of the L2-L5 facets. 2. No evidence of acute fracture or traumatic subluxation of the lumbar spine. 3. Moderate multilevel degenerative spondyloarthropathy of the lumbar spine as described in detail above. Most notably on this limited exam without intrathecal contrast, there appears to be moderate spinal canal stenosis at L1-L2. Mild spinal canal stenosis at L5-S1. Moderate to severe neural foraminal stenoses from L1-S1.
[2022-07-27 10:43] VITALS: BP 142/76; PULSE 77; RESP 20; TEMP 36.9; O2SAT 95; BMI 42.0
--- NOTE | 2022-07-27 12:21 | ED_ITS ---
HPI - Back Pain/Injury General Chief Complaint: Back Pain/Injury Stated Complaint: Back Pain No Injury Time Seen by Provider: 07/27/22 12:10 Source: patient Mode of arrival: ambulatory History of Present Illness HPI Narrative: 61-year-old female with past medical history of diabetes, HTN, insomnia, HLD, RUY, obesity, seizure disorder, chronic back pain s/p multiple surgeries, presenting to the ED complaining of acute on chronic left-sided low back pain radiating down left lower extremity x months. Reports associated left lower extremity paresthesia/numbness. Denies known injury/trauma, fall, urinary incontinence/retention, fever. Reports saw PCP & was diagnosed with sciatica prescribed tramadol without relief. Also takes Soma with relief. MD elicited complaint: back pain Onset (ago): month(s) Related Data Home Medications Medication Instructions Recorded Confirmed levetiracetam 500 mg tablet 500 mg PO BID 06/10/21 12/13/21 (Keppra) fluticasone propionate 50 spray intranasal 12/13/21 12/13/21 mcg/actuation nasal spray,suspension Previous Rx's Medication Instructions Recorded blood pressure test kit medium and #1 ea 08/30/21 large cuffs ([employer]uxe Arm Blood Pressure Monitor kit) sertraline 100 mg tablet 100 mg PO DAILY #30 tabs 02/15/22 lisinopril 20 mg tablet 20 mg PO DAILY #90 tabs 03/04/22 omega-3 acid ethyl esters 1 gram 2 cap PO BID 3 months #360 caps 04/07/22 capsule (Lovaza) gabapentin 300 mg capsule 300 mg PO TID #90 caps 04/21/22 rosuvastatin 5 mg tablet 5 mg PO DAILY 90 days #90 tabs 05/13/22 carvedilol 3.125 mg tablet 3.125 mg PO BID 90 days #180 tabs 05/16/22 buspirone 10 mg tablet 10 mg PO TID #90 tabs 05/18/22 metformin 500 mg tablet 500 mg PO BID #180 tabs 06/17/22 nabumetone 500 mg tablet 500 mg PO BID PRN joint pain #60 07/05/22 tabs amlodipine 5 mg tablet 5 mg PO DAILY #90 tabs 07/12/22 carisoprodol 350 mg tablet 350 mg PO BEDTIME PRN muscle pain 07/12/22 #20 tabs tramadol 50 mg tablet 50 mg PO DAILY PRN pain, moderate 07/12/22 #10 tabs quetiapine 25 mg tablet 25 mg PO BEDTIME #30 tabs 07/18/22 hydrocodone 5 mg-acetaminophen 325 1 tab PO Q8H PRN pain, severe 3 07/27/22 mg tablet days #9 tabs lidocaine 5 % topical patch 1 patch topical DAILY PRN pain #30 07/27/22 (Lidoderm) ea naproxen 500 mg tablet 500 mg PO BID PRN pain 10 days #20 07/27/22 tabs Allergies Allergy/AdvReac Type Severity Reaction Status Date / Time No Known Allergies Allergy Verified 07/12/22 11:21 Review of Systems Review of Systems: Constitutional: No Fever, No Chills ENT/Mouth: No Ear Pain, No Nasal Congestion, No sore throat, No Rhinorrhea, No Swallowing Difficulty Cardiovascular: No Chest Pain, No SOB Respiratory: No Cough Gastrointestinal: No Nausea, No Vomiting, No Diarrhea, No Constipation, No Abdominal pain Genitourinary: No Dysuria, No Hematuria, No Urinary Incontinence/retention, No Flank Pain Musculoskeletal: +joint pain, No Myalgias, No Joint Swelling Skin: No Skin Lesions, No rash Neuro: No Weakness, + Numbness, +Paresthesias Yes all other systems are reviewed and are negative Constitutional: Constitutional: Reports as per HPI Neurologic: Denies Sensory deficit (Neuro) [facility] Past Medical History Attestation statement: The following information was validated with the patient. Medical History Diabetes mellitus with microalbuminuria, without long-term current use of insulin Essential hypertension Family history of early CAD Family history of uterine cancer Generalized anxiety disorder Insomnia Mixed dyslipidemia Morbid obesity RUY (obstructive sleep apnea) Polyarthralgia Sacroiliac joint dysfunction of left side Seizure disorder Type 2 diabetes mellitus without complication, without long-term current use of insulin Vitamin D deficiency Surgical History History of back surgery Status post open reduction and internal fixation (ORIF) of fracture Family History Family History Maternal Aunt History of breast cancer Other Unknown family medical history Social History Social History Housing: House Alcohol intake: never Patient Tobacco Use Status: Never used Tobacco e-Cigarette/Vaping Use: Never Used Advance Directives: No service: No Current occupational status: disabled Cognitive needs: No Hearing needs: No Vision needs: No Physical Exam Vital Signs: Vital Signs: Last Vital Signs Temp 98.6 F 07/27/22 16:37 Pulse 81 07/27/22 18:21 Resp 15 07/27/22 18:21 BP 159/90 H 07/27/22 18:21 Pulse Ox 97 07/27/22 18:21 O2 Del Method Room Air 07/27/22 18:21 BMI result Body Mass Index 42.0 Const: General: cooperative, healthy appearing and no acute distress Orientation/consciousness: patient oriented x3 Limitations: no limitations HEENT: Head: Yes normal to inspection and Yes atraumatic Ears: hearing grossly normal bilaterally General nose exam: Normal external nose present Face and sinus: Yes normal facial exam Eyes: General: appearance normal, both eyes and all related structures EOM: EOMs intact bilaterally Neck: Neck: Yes normal visual inspection and Yes no meningeal signs Resp: Effort & Inspection: normal respiratory effort and no respiratory distress Cardio: Rate: regular rate GI: Inspection: Yes normal to inspection Palpation (GI): Soft to palpation, nontender, no guarding and not rigid : General: Yes no CVA tenderness Back/Spine/Pelvis: Other: No midline thoracic/lumbar spinous tenderness/step-off or deformity. + left buttock tenderness to palpation. No erythema/ecchymosis or crepitus Back: no CVA tenderness Skin: Rashes: no rashes Wounds: no wounds Neuro: Other: Strength intact throughout. No saddle anesthesia. Sensation intact to light touch. Neurovascular intact distally General: patient oriented x3, tone normal, moves all extremities, no meningeal signs, no focal motor deficits and CN's II-XI intact bilaterally Gait exam (Neuro): Normal gait present Motor exam (neuro): 5/5 motor strength present throughout Sensory Exam: No Sensory deficit (Neuro) Extrem: General: Yes normal to inspection Course Course Course Narrative: >1400--patient still reporting severe pain after Flexeril, Toradol, Lidoderm patch. Will give oxycodone and Tylenol on re-evaluate > patient requesting CT, ordered per request CT lumbar spine wo IV con IMPRESSION: 1.? Instrumented posterior fusion of L2-L3. No evidence of hardware fracture or loosening. Solid osseous fusion of the L2-L5 facets. 2.? No evidence of acute fracture or traumatic subluxation of the lumbar spine. 3.? Moderate multilevel degenerative spondyloarthropathy of the lumbar spine as described in detail above. Most notably on this limited exam without intrathecal contrast, there appears to be moderate spinal canal stenosis at L1-L2. Mild spinal canal stenosis at L5-S1. Moderate to severe neural foraminal stenoses from L1-S1. > patient ambulating in the ED without assistance. Requesting additional pain medication. Results discussed with patient including worrisome signs and symptoms and strict return precautions, and when to return to the emergency department. They verbalized understanding and feel safe for discharge at this time. -Per [facility] review patient filled a 20 day supply of Soma on 07/12 & 7 day supply of Tramadol & 30 day supply of Gabapentin on 07/21 Medications Administered Discontinued Medications Generic Name Dose Route Start Last Admin Trade Name Anival PRN Reason Stop Dose Admin Acetaminophen 650 mg 07/27/22 14:03 07/27/22 14:09 Acetaminophen 325 Mg Tablet PO 07/27/22 14:04 650 mg ONCE ONE Administration Cyclobenzaprine HCl 10 mg 07/27/22 12:27 07/27/22 12:36 Cyclobenzaprine Hcl 10 Mg Tablet PO 07/27/22 12:28 10 mg ONCE ONE Administration Ketorolac Tromethamine 30 mg 07/27/22 12:27 07/27/22 12:37 Ketorolac Tromethamine 30 Mg/Ml Vial IM 07/27/22 12:28 30 mg ONCE ONE Administration Lidocaine 1 patch 07/27/22 12:27 07/27/22 12:36 Lidocaine 4 % Patch Adh..Patch TRANSDERMA 07/27/22 12:28 1 patch ONCE ONE Administration Protocol Oxycodone HCl 5 mg 07/27/22 14:03 07/27/22 14:10 Oxycodone Hcl Immed Release 5 Mg Tablet PO 07/27/22 14:04 5 mg ONCE ONE Administration Medical Decision Making Medical Decision Making MDM Narrative: 61-year-old female with past medical history of diabetes, HTN, insomnia, HLD, RUY, obesity, seizure disorder, chronic back pain s/p multiple surgeries, presenting to the ED complaining of acute on chronic left-sided low back pain radiating down left lower extremity x months. On exam vital signs stable, NAD, nontoxic appearing, no midline spinous tenderness throughout. Left buttock tenderness to palpation. No red flag symptoms. Concern for sciatica/MSK pain/spasming vs herniated disc. Low suspicion for renal stone/pyelo, cauda equina/cord compression, fracture or epidural abscess Plan: Pain control Please refer to course for remaining clinical decision making, interpretation of labs/imaging results, and discussions with consultants and/or family members. Differential Diagnosis Differential Diagnoses: The differential diagnosis associated with the presentation includes As above Admission/Observation Consideration of admission/observation: Escalation of care including admission/observation considered Lab Data MDM Lab Attestation statement: I reviewed the patient's lab results. Radiology Impression Discussion of test interpretation with radiology: I have reviewed the radiologist's reading. External Record Review External record reviewed: Inpatient record, Office record, Outpatient record, Prior outpatient labs, Prior outpatient radiology, Primary care record and Outside ED record Discharge Plan Discharge Clinical Impression: Lumbar canal stenosis Patient Disposition: Home, Self-Care Instructions: Acute Low Back Pain (ED) Additional Instructions: Your CT shows multilevel arthritic changes and some spinal canal stenosis Continue taking previously prescribed muscle relaxer, Soma In addition [place] is an opiate pain medication, take only when pain is severe for the next 3 days Naproxen as an anti-inflammatory / pain medication, take with food Lidoderm patches are numbing patches, apply to painful area If symptoms persist or worsen, pain becomes unbearable, you developed urinary retention or incontinence, or weakness return to the ED Call your doctor for close follow-up Prescriptions: New hydrocodone-acetaminophen 5-325 mg tablet 1 tab PO Q8H PRN (Reason: pain, severe) 3 Days Qty: 9 0RF Rx Instructions: Partial Fill upon patient request. lidocaine [Lidoderm] 5 % adhesive patch,medicated 1 patch topical DAILY MDD remove after 12 hours PRN (Reason: pain) Qty: 30 0RF Rx Instructions: leave on most painful area for up to 12 hrs naproxen 500 mg tablet 500 mg PO BID PRN (Reason: pain) 10 Days Qty: 20 0RF No Action (DME) blood pressure kit med and lrg [Deluxe Arm Blood Pressure Mon] Kit See Rx Instructions .Route Qty: 1 0RF Rx Instructions: check blood pressure as directed sertraline 100 mg tablet 100 mg PO DAILY Qty: 30 5RF lisinopril 20 mg tablet 20 mg PO DAILY Qty: 90 1RF omega-3 acid ethyl esters [Lovaza] 1 gram capsule 2 cap PO BID 90 Days Qty: 360 1RF gabapentin 300 mg capsule 300 mg PO TID Qty: 90 3RF rosuvastatin 5 mg tablet 5 mg PO DAILY 90 Days Qty: 90 1RF carvedilol 3.125 mg tablet 3.125 mg PO BID 90 Days Qty: 180 3RF buspirone 10 mg tablet 10 mg PO TID Qty: 90 5RF metformin 500 mg tablet 500 mg PO BID Qty: 180 1RF nabumetone 500 mg tablet 500 mg PO BID PRN (Reason: joint pain) Qty: 60 0RF quetiapine 25 mg tablet 25 mg PO BEDTIME Qty: 30 5RF amlodipine 5 mg tablet 5 mg PO DAILY Qty: 90 3RF tramadol 50 mg tablet 50 mg PO DAILY PRN (Reason: pain, moderate) Qty: 10 0RF carisoprodol 350 mg tablet 350 mg PO BEDTIME PRN (Reason: muscle pain) Qty: 20 0RF levetiracetam [Keppra] 500 mg tablet 500 mg PO BID fluticasone propionate 50 mcg/actuation spray,suspension intranasal Referrals: Anum Woodard MD [Primary Care Provider] -
[2022-07-27] MEDS: Cyclobenzaprine HCl 10 MG TABLET PO (12:36)
[2022-07-27] MEDS: Lidocaine 4 % Patch ADH..PATCH 1 PATCH TRANSDERMA (12:36)
[2022-07-27] MEDS: Ketorolac Tromethamine 30 MG/ML VIAL IM (12:37)
--- NOTE | 2022-07-27 12:42 | PC.NURSE ---
pt medicated per JUN for 01/24 left sided back pain. toradol 30mgIM given, lidocaine 4% patch applied to left lower buttock/back, flexeril 10mg
--- NOTE | 2022-07-27 13:50 | PC.NURSE ---
pt, and relative at bedside requestiong MRI for pt- explained to pt that MRI's are typically done on an outpatient basis, allowed pt to vent frustrations, advised i will pass request on to provider for MRI- Provider aware no new orders at this time
[2022-07-27] MEDS: Acetaminophen 325 MG TABLET 650 MG PO (14:09)
[2022-07-27] MEDS: oxyCODONE HCl Immed Release 5 MG TABLET PO (14:10)
--- NOTE | 2022-07-27 14:12 | PC.NURSE ---
pt medicated per JUN for 01/24 excruciating left sided back pain- sts that she need some sort of look inside advising I've had lots of surgeries and something is wrong . opt advised nurse that she called her PCP (enoch) while in dept- sts that she will not order any follow up imaging as she is in the care of the ED provider. will review with provider call negro within reach
--- NOTE | 2022-07-27 14:33 | PC.NURSE ---
PT RETURNED FROM CT SCAN-
--- NOTE | 2022-07-27 14:49 | PC.NURSE ---
PT RETURNED FROM [facility] GIVEN PER REQUEST
[2022-07-27 16:37] VITALS: BP 92/63; PULSE 69; RESP 13; TEMP 37; O2SAT 95
[2022-07-27 18:21] VITALS: BP 159/90; PULSE 81; RESP 15; O2SAT 97
== END 2022-07-27 18:38 | disposition home or self-care (01) ==
PROVIDERS: Emergency Provider Emergency Medicine; PCP Internal Medicine
DX: M54.50 Low back pain, unspecified (principal); G89.29 Other chronic pain; E11.9 Type 2 diabetes mellitus without complications; I10 Essential (primary) hypertension; G47.00 Insomnia, unspecified; E78.5 Hyperlipidemia, unspecified; M79.662 Pain in left lower leg
CPT/HCPCS: 72131; 96372; 99283; 99284; J1885

== ENCOUNTER → 2022-09-01 13:01 | Outpatient (BNVA) | payer OTHER, SELFPAY | PROVIDERS: PCP Internal Medicine; Visit Provider Registered Nurse Emergency | DX: M47.26 Other spondylosis with radiculopathy, lumbar region (principal); M48.061 Spinal stenosis, lumbar region without neurogenic claudication; M53.3 Sacrococcygeal disorders, not elsewhere classified; M96.1 Postlaminectomy syndrome, not elsewhere classified | CPT/HCPCS: 99212; Q3014 ==

== ENCOUNTER 2022-10-11 06:57 | Outpatient (REF) | payer OTHER, SELFPAY | END 2022-10-11 06:58 | disposition home or self-care (01) | LOC: CF 06:57 | PROVIDERS: PCP Internal Medicine; Visit Provider Anesthesiology | DX: Z13.89 Encounter for screening for other disorder (principal) ==

== ENCOUNTER 2022-10-12 10:24 | Outpatient (REF) | payer OTHER, SELFPAY ==
[2022-10-12 11:57] LABS: Alanine Aminotransferase 45 U/L (0-31); Anion Gap 12 (12-20); Aspartate Amino Transferase 36 U/L (5-31); Blood Urea Nitrogen 27 mg/dL (9-16); Calcium 9.9 mg/dL (8.4-10.2); Carbon Dioxide 27 mmol/L (22-29); Chloride 100 mmol/L (96-108); Cholesterol 135 mg/dL; Estimated Glomerular Filt Rate 34; Glucose Fasting 118 mg/dL (60-99); HDL Cholesterol 36 mg/dL; LDL Cholesterol Calculated 35 mg/dl; Potassium 4.2 mmol/L (3.3-5.1); Sodium 135 mmol/L (135-145); Triglycerides 321 mg/dL
== END 2022-10-12 10:25 | disposition home or self-care (01) ==
LOC: HO.HMGCLDS 10:24
PROVIDERS: PCP Internal Medicine; Visit Provider Internal Medicine
DX: E11.29 Type 2 diabetes mellitus with other diabetic kidney complication (principal); R80.9 Proteinuria, unspecified; E78.2 Mixed hyperlipidemia; E66.01 Morbid (severe) obesity due to excess calories; I10 Essential (primary) hypertension
CPT/HCPCS: 36415; 80048; 80061; 84450; 84460

== ENCOUNTER 2023-02-02 09:37 | Outpatient (REF) | payer OTHER, SELFPAY ==
[2023-02-02 14:28] LABS: Alanine Aminotransferase 51 U/L (0-31); Alkaline Phosphatase 55 U/L (39-117); Anion Gap 15 (12-20); Aspartate Amino Transferase 33 U/L (5-31); Bilirubin Total 0.2 mg/dL (0.0-1.0); Blood Urea Nitrogen 17 mg/dL (9-16); Calcium 9.7 mg/dL (8.4-10.2); Carbon Dioxide 24 mmol/L (22-29); Chloride 103 mmol/L (96-108); Cholesterol 177 mg/dL (<200); Estimated Glomerular Filt Rate > 60; Glucose Fasting 152 mg/dL (60-99); HDL Cholesterol 47 mg/dL (>40); LDL Cholesterol Calculated 75 mg/dL (<100); Potassium 4.2 mmol/L (3.3-5.1); Sodium 138 mmol/L (135-145); Total Protein 6.9 g/dL (6.5-8.0); Triglycerides 275 mg/dL (<150)
[2023-02-02 14:40] LABS: Estimated Average Glucose 146 mg/dL; Hemoglobin A1c % 6.7 % (<6.0)
[2023-02-02 14:59] LABS: Creatinine Urine 290.69 mg/dL; Microalbum/Creatinine Ratio Ur 30.9 ug/mg cr (<30)
== END 2023-02-02 09:38 | disposition home or self-care (01) ==
LOC: HO.HMGCLDS 09:37
PROVIDERS: PCP Internal Medicine; Visit Provider Internal Medicine
DX: E11.29 Type 2 diabetes mellitus with other diabetic kidney complication (principal); R80.9 Proteinuria, unspecified; I10 Essential (primary) hypertension; E78.2 Mixed hyperlipidemia
CPT/HCPCS: 36415; 80053; 80061; 82043; 82570; 83036

== ENCOUNTER 2023-02-06 08:45 | Outpatient (AMB) | payer OTHER, SELFPAY ==
[2023-02-06 10:37] VITALS: BP 140/96; PULSE 69; O2SAT 97; BMI 47.5
--- NOTE | 2023-02-06 10:37 | A.OFFPC_ITS ---
<Statement entered by Anum Woodard MD - 05/18/25 23:52> This note has been administratively?closed. Vital Signs 02/06/23 10:37 Height 5 ft 2 in Weight 259 lb 8 oz BMI 47.5 BP 140/96 H Blood Pressure Location Rt brachial Position Sitting Pulse 69 Pulse Source Pulse Oximeter Pulse Oximetry (%) 97 Oxygen Delivery Method Room Air Intake Visit Reasons: Follow up Intake Note: pt is here to follow up for her lab results pt needs new referral for colon screening Allergies No Known Allergies Allergy (Verified 02/27/23 08:21) Medication List - Last Reconciled 02/06/23 by Anum Woodard MD amlodipine 5 mg PO DAILY blood pressure kit med and lrg (Deluxe Arm Blood Pressure Monitor kit) check blood pressure as directed buspirone 10 mg PO TID carisoprodol 350 mg PO BEDTIME PRN carvedilol 3.125 mg PO BID 90 days fluticasone propionate 50 mcg/actuation sprays intranasal gabapentin 300 mg PO TID levetiracetam (Keppra) 500 mg PO BID lidocaine 5% (Lidoderm) 1 patch topical DAILY PRN MDD remove after 12 hours lisinopril 20 mg PO DAILY metformin 500 mg PO BID nabumetone 500 mg PO BID PRN omega-3 acid ethyl esters (Lovaza) 2 caps PO BID 3 months quetiapine 50 mg PO BEDTIME rosuvastatin 5 mg PO DAILY 90 days sertraline 100 mg PO DAILY Tobacco use date assessed: 02/06/23 Dental Screening Dental Screen Date: 02/06/23 Did you have a dental visit in the last 12 months?: Yes Did you have a dental problem in the last 6 months where you did not have access to dental care?: No Was dental information given to patient?: Patient has dentist HPI Follow up HPI Details 62-year-old lady with diabetes mellitus, currently on metformin 500 mg taken 1 tablet twice a day, has hyperlipidemia currently on rosuvastatin 5 mg daily and Welling 3 fatty acid supplements, and has hypertension currently on carvedilol 3.125 mg taken twice a day, lisinopril 20 mg daily and amlodipine 5 mg once a day, here today for her follow-up. She had recent fasting labs done which showed diabetes mellitus control slipping, with hemoglobin A1c now at 6.7%, up from 6.2 on last visit. Fasting lipids are within normal limits except for elevated triglycerides. Patient lost her footing, right ankle gave way and fell down the stairs, around 8 steps. She was able to get up but is complaining of pain in her right lower back going down to right buttock. Has been taking nabumetone twice a day including there carisoprodol which affords only temporary relief Complaining of worsening anxiety attacks, currently on sertraline 100 mg daily and quetiapine 50 mg at bedtime as well as buspirone 10 mg 1 tablet 3 times a day [facility] Medical History (Updated 02/28/23 @ 02:15 by Anum Woodard MD) Influenza vaccine refused Lumbar back pain with radiculopathy affecting left lower extremity Lumbar foraminal stenosis Sacroiliac joint dysfunction of left side Diabetes mellitus with microalbuminuria, without long-term current use of insulin Mixed dyslipidemia Polyarthralgia Vitamin D deficiency RUY (obstructive sleep apnea) Family history of uterine cancer Family history of early CAD Seizure disorder Insomnia Morbid obesity Generalized anxiety disorder Essential hypertension Type 2 diabetes mellitus without complication, without long-term current use of insulin Surgical History History of back surgery Status post open reduction and internal fixation (ORIF) of fracture Family History Maternal Aunt History of breast cancer Other Unknown family medical history Social History Housing: House Alcohol intake: never Patient Tobacco Use Status: Never used Tobacco e-Cigarette/Vaping Use: Never Used Patient : No service: No Current occupational status: disabled Cognitive needs: No Hearing needs: No Vision needs: No Questionnaire Thrive Questionnaire Date Thrive assessed: 10/12/22 JACOB-7 AMB Questionnaire JACOB-7 Date JACOB - 7 assessed: 10/12/22 Source: Developed by Drs. Alfred Lanza, Belem Mckeon, Benedict Lee and colleagues, with an educational yunier from [employer]. Physical exam (Primary Care) Vital Signs: Last Vital Signs Pulse 69 02/06/23 10:37 BP 140/96 H 02/06/23 10:37 Pulse Ox 97 02/06/23 10:37 Oxygen Delivery Method Room Air 02/06/23 10:37 BMI result Body Mass Index 47.5 Tobacco/Smoking Status: Tobacco use Status Tobacco use date assessed 02/06/23 02/06/23 10:40 Patient Tobacco Use Status Never used Tobacco 02/06/23 10:37 e-Cigarette/Vaping Use Never Used 02/06/23 10:37 Thrive Assessment: Date of Thrive Assessment Date Thrive assessed 10/12/22 02/06/23 10:37 Back/Spine/Pelvis Thoracic/Lumbar Spine: straight leg raise negative bilaterally and paraspinal muscle tenderness on the right in the mid lumbar and in the lower lumbar Results Reviewed Results Reviewed: RUN: 02/06/23 1102 PAGE 1 [facility] [address] [place] [id number] Field Sampling Technician: Adonis Saunders M.D. Specimen Inquiry Name: Lacy Ann Age/Sex: 62/F : 1960 Unit#: [id number] Attend Dr: Anum Woodard MD Re02/02/23 Status: DEP REF Location: [id number] Disch: SPEC : [id number] GERI: 02/02/23 STATUS: COMP REQ : [id number] RECD: 02/02/[address]: Anum Woodard MD COMP: 02/02/23 ENTERED: 02/02/23 [facility] DR: ORDERED: CMP Fast, Lipid Panel Test Result Flag Reference Site Sodium 138 135-145 mmol/L Potassium 4.2 3.3-5.1 mmol/L CL 103 96-108 mmol/L CO2 24 22-29 mmol/L Gap 15 12-20 BUN 17 H 9-16 mg/dL Creat 0.77 0.5-1.4 mg/dL EGFR > 60 NOTE: For -[place] individuals, multiply the result by 1.210. Chronic Kidney Disease: Estimated GFR < 60 mL/min/1.73m2 Severe Kidney Disease: Estimated GFR < 15 mL/min/1.73m2 FBS 152 H 60-99 mg/dL A fasting glucose of 126 mg/dl or greater on more than one occasion is considered diagnostic of diabetes. CA 9.7 8.4-10.2 mg/dL Total Bili 0.2 0.0-1.0 mg/dL AST (GOT) 33 H 5-31 U/L ALT (GPT) 51 H 0-31 U/L Protein, Total 6.9 6.5-8.0 g/dL Alb 4.0 3.5-5.0 g/dL Triglyceride 275 H <150 mg/dL Desirable Triglyceride: less than 150 mg/dL Borderline High Triglyceride 150-199 mg/dL High Triglyceride: 200-499 mg/dL Very High Triglyceride: greater than or equal to 5OO mg/dL Cholesterol 177 <200 mg/dL Desirable Cholesterol: less than 200 mg/dL Borderline High Cholesterol: 200-239 mg/dL High Cholesterol: greater than 239 mg/dL LDL Calculated 75 <100 mg/dL Desirable LDL: less than 100 mg/dL Near Optimal/Above Optimal LDL: 110-129 mg/dL Borderline High LDL: 130-159 mg/dL High LDL: 160-189 mg/dL Very High LDL: greater than or equal to 190 mg/dL HDL 47 >40 mg/dL Desirable HDL: greater than 40 mg/dL Note: This HDL assay may give artificially low results in patients with liver disease. Alk Phos 55 39-117 U/L Laboratory Tests 10/12/22 02/02/23 09:44 09:41 Estimat Average Glucose 146 Hgb A1c (Clinic) 6.2 H Hemoglobin A1c % 6.7 H Coding Level of Care Code Admin Sign Off/No Billing Diagnoses History of recent fall Z91.81 Lumbar back pain with radiculopathy affecting right lower extremity M54.16 Post laminectomy syndrome M96.1 Diabetes mellitus with microalbuminuria, without long-term current use of insulin E11.29; R80.9 Mixed dyslipidemia E78.2 Vitamin D deficiency E55.9 Essential hypertension I10 Generalized anxiety disorder F41.1 Morbid obesity E66.01
== END 2023-02-06 11:16 | disposition home or self-care (01) ==
PROVIDERS: PCP Internal Medicine; Visit Provider Internal Medicine
DX: E11.29 Type 2 diabetes mellitus with other diabetic kidney complication (principal); M54.16 Radiculopathy, lumbar region; M96.1 Postlaminectomy syndrome, not elsewhere classified; R80.9 Proteinuria, unspecified; E78.2 Mixed hyperlipidemia; E55.9 Vitamin D deficiency, unspecified; I10 Essential (primary) hypertension; F41.1 Generalized anxiety disorder
CPT/HCPCS: 99499

== ENCOUNTER 2023-02-06 11:21 | Outpatient (REF) | payer OTHER, SELFPAY ==
--- NOTE | ~2023-02-06 | XR_ITS ---
EXAMINATION: XR LUMBOSACRAL SPINE WITH OBLIQUES CLINICAL INFORMATION: Fall. Pain. COMPARISON: Most recent lumbar spine CT dated 07/27/2022. TECHNIQUE: AP, lateral, coned down, and bilateral oblique views of the lumbar spine. FINDINGS: Redemonstration of posterior stabilization hardware at L2-L3. Intervertebral disc hardware at L3-L4 and L4-L5. No hardware fracture. No perihardware lucency to suggest loosening or infection. Multiple adjacent surgical screws. Unchanged vertebral body alignment with mild straightening of the normal lumbar lordosis which is likely positional. No acute fracture or subluxation. No loss of vertebral body height. Multilevel loss of intervertebral disc height with degenerative endplate osteophytes and multilevel bilateral facet arthropathy, similar when compared to the prior examination. No new, concerning lytic or blastic osseous lesion. No abnormal soft tissue calcification. XR/XR lumbar spine 4V min IMPRESSION: 1. Posterior stabilization hardware at L2-L3 without evidence of complication. 2. No acute fracture or subluxation. 3. Multilevel degenerative disc disease and bilateral facet arthropathy, similar when compared to the prior examination.
== END 2023-02-06 11:22 | disposition home or self-care (01) ==
LOC: HO.HMGCX 11:21
PROVIDERS: PCP Internal Medicine; Visit Provider Internal Medicine
DX: M54.16 Radiculopathy, lumbar region (principal); Z91.81 History of falling
CPT/HCPCS: 72110

== ENCOUNTER 2023-02-27 07:52 | Outpatient (AMB) | payer OTHER, SELFPAY ==
--- NOTE | 2023-02-27 08:01 | MHC.PC.OV ---
Vital Signs 02/27/23 08:02 Height 5 ft 2 in Weight 268 lb 9 oz BMI 49.1 BP 120/90 H Blood Pressure Location Lt brachial Position Sitting Pulse 73 Pulse Source Pulse Oximeter Pulse Oximetry (%) 97 Oxygen Delivery Method Room Air Intake Visit Reasons: Annual PE/Covered by Sec ins Intake Note: Patient here for annual pe and would like to talk about severe back pain that is now radiating to the shoulders. she states she is having a hard time getting dressed and almost fell the other day in the shower. Rug Sample Beveler Required: No Post menopausal: Yes Patient : No Allergies No Known Allergies Allergy (Verified 02/27/23 08:21) Medication List - Last Reconciled 02/27/23 by Anum Woodard MD amlodipine 5 mg PO DAILY blood pressure kit med and lrg (Deluxe Arm Blood Pressure Monitor kit) check blood pressure as directed buspirone 15 mg PO TID carisoprodol 350 mg PO BEDTIME PRN carvedilol 3.125 mg PO BID 90 days fluticasone propionate 50 mcg/actuation sprays intranasal gabapentin 300 mg PO TID levetiracetam (Keppra) 500 mg PO BID lidocaine 5% (Lidoderm) 1 patch topical DAILY PRN MDD remove after 12 hours lisinopril 20 mg PO DAILY metformin 500 mg PO BID nabumetone 500 mg PO BID PRN omega-3 acid ethyl esters (Lovaza) 2 caps PO BID 3 months quetiapine 100 mg PO BEDTIME rosuvastatin 5 mg PO DAILY 90 days sertraline 100 mg PO DAILY Tobacco use date assessed: 02/06/23 Dental Screening Dental Screen Date: 02/27/23 Did you have a dental visit in the last 12 months?: Yes Did you have a dental problem in the last 6 months where you did not have access to dental care?: No Was dental information given to patient?: Patient has dentist HPI Annual PE/Covered by Sec ins HPI Details 62-year-old lady with diabetes mellitus, hyperlipidemia, hypertension, generalized anxiety disorder, chronic low back pain, obstructive sleep apnea, seizure disorder, morbid obesity and insomnia, here today for physical exam. She is up-to-date with her screening mammogram, but still has not scheduled her colonoscopy screening yet, needs another order. She also is overdue for her cervical cancer screening. She has been seen at the OBGYN clinic at [facility] last year but they had difficulty doing her pelvic exam at that time, and patient was then asked to schedule another visit for this year, which has not yet been made. She has been compliant with her medication, but has not been using her CPAP, could not tolerate it. She has had her COVID vaccines, has not yet had the latest booster, does not want to get flu vaccine, but is up-to-date with her pneumonia vaccine. She has level degenerative disc disease in her spine, complains of sudden onset of painful muscle spasm and cramping in her left lower back shooting up to her interscapular area which has been present now for the last 3 weeks. Patient denies any history of trauma or any strenuous exertion. She has been referred for this to physical therapy but has not yet heard from them about an appointment schedule. Been taking acetaminophen and carisoprodol which has not been helping much. Denies any accompanying weakness, no numbness or tingling, no urinary or stool stool incontinence reported. [facility] Medical History (Updated 02/28/23 @ 02:15 by Anum Woodard MD) Influenza vaccine refused Lumbar back pain with radiculopathy affecting left lower extremity Lumbar foraminal stenosis Sacroiliac joint dysfunction of left side Diabetes mellitus with microalbuminuria, without long-term current use of insulin Mixed dyslipidemia Polyarthralgia Vitamin D deficiency RUY (obstructive sleep apnea) Family history of uterine cancer Family history of early CAD Seizure disorder Insomnia Morbid obesity Generalized anxiety disorder Essential hypertension Type 2 diabetes mellitus without complication, without long-term current use of insulin Surgical History History of back surgery Status post open reduction and internal fixation (ORIF) of fracture Family History Maternal Aunt History of breast cancer Other Unknown family medical history Social History Housing: House Alcohol intake: never Patient Tobacco Use Status: Never used Tobacco e-Cigarette/Vaping Use: Never Used service: No Current occupational status: disabled Cognitive needs: No Hearing needs: No Vision needs: No Female Reproductive History Menstrual Menopause type: natural Questionnaire PHQ-9 Over the last 2 weeks, how often have you been bothered by any of the following problems? 1. Little interest or pleasure in doing things: not at all 2. Feeling down, depressed, or hopeless: not at all 3. Trouble falling or staying asleep, or sleeping too much: more than half the days 4. Feeling tired or having little energy: several days 5. Poor appetite or overeating: not at all 6. Feeling bad about yourself - or that you are a failure or have let yourself or your family down: not at all 7. Trouble concentrating on things, such as reading the newspaper or watching television: not at all 8. Moving or speaking so slowly that other people could have noticed. Or the opposite - being so fidgety or restless that you have been moving around a lot more than usual: not at all 9. Thoughts that you would be better off or of hurting yourself in some way: not at all Total score: 3 Depression Screening Interpretation: Negative Depression Screening Done: Yes 18888 - PHQ-9 Billing: Yes Source: Developed by Drs. Alfred Lanza, Belem Mckeon, Benedict Lee and colleagues, with an educational yunier from [employer]. Thrive Questionnaire Date Thrive assessed: 10/12/22 AUDIT C Alcohol Use Questionnaire (AUDIT-C) 1. How often do you have a drink containing alcohol?: Monthly or less 2. How many drinks containing alcohol do you have on a typical day when you are drinking?: 1 or 2 3. How often do you have six or more drinks on one occasion?: Never Total Score: 1 Score Reviewed/Action Taken: No JACOB-7 AMB Questionnaire JACOB-7 Date JACOB - 7 assessed: 10/12/22 Source: Developed by Drs. Alfred Lanza, Belem Mckeon, Benedict Lee and colleagues, with an educational yunier from [employer]. Review of Systems Const Reports as per HPI, Reports no additional complaints, Reports malaise, Reports snoring and Reports weight gain Eyes Reports no additional complaints ENT Reports no additional complaints Card Denies chest pain, Denies chest pain with activity, Denies syncope, Denies rapid heart rate, Denies pedal edema, Denies lightheadedness, Denies palpitations, Denies dyspnea, Denies dyspnea on exertion and Denies orthopnea Resp Denies cough, Denies dyspnea, Denies dyspnea on exertion and Reports snoring GI Denies abdominal pain, Denies melena, Denies bloating, Denies hematochezia, Denies change in stool character and Denies heartburn Reports no additional complaints Musc Reports as per HPI Skin/Breast Denies breast pain, Denies breast mass, Denies lesions and Denies rash Neuro Reports as per HPI, Denies syncope and Denies seizure-like activity Psych Reports no additional complaints Endo Denies polyphagia, Denies polydipsia, Denies polyuria and Denies palpitations Gordon/Lymph Reports no additional complaints Aller/Immun Reports no additional complaints Physical exam (Primary Care) Vital Signs: Last Vital Signs Pulse 73 02/27/23 08:02 BP 120/90 H 02/27/23 08:02 Pulse Ox 97 02/27/23 08:02 Oxygen Delivery Method Room Air 02/27/23 08:02 BMI result Body Mass Index 49.1 BMI Assessment/Plan discussion: High BMI High, discussed plan: lifestyle, weight reduction, dietary and physical activity Tobacco/Smoking Status: Tobacco use Status Tobacco use date assessed 02/06/23 02/27/23 08:06 Patient Tobacco Use Status Never used Tobacco 02/27/23 08:06 e-Cigarette/Vaping Use Never Used 02/27/23 08:06 Depression Screening Interpretation: Negative Thrive Assessment: Date of Thrive Assessment Date Thrive assessed 10/12/22 02/27/23 08:06 Const Other: Alert oriented x3, no acute distress noted ambulatory normal gait Orientation/consciousness: patient oriented x3 [facility] Mouth: Normal oral and palatal mucosa present and moist mucous membranes Eyes General: appearance normal, both eyes and all related structures Neck Neck: Yes full ROM, Yes no lymphadenopathy and Yes supple Chest Chest palpation & inspection: normal inspection of the chest Breast/axilla palpation: normal palpation of the breasts Resp Effort & Inspection: normal respiratory effort and able to speak in complete sentences Auscultation: clear to auscultation bilaterally Cardio Other: S1-S2 present regular written to the GI Inspection: Yes obesity Palpation (GI): Soft to palpation, nontender, no guarding and no masses Back/Spine/Pelvis Thoracic/Lumbar Spine: straight leg raise negative bilaterally and paraspinal muscle tenderness on the right in the mid lumbar and in the lower lumbar Skin General skin exam: no rashes or lesions noted Neuro General: patient oriented x3, gait normal, moves all extremities, Normal light touch and pain sensation, no focal motor deficits and CN's II-XI intact bilaterally Extrem General: Yes full ROM, Yes no joint enlargement, Yes no pedal edema, Yes no calf tenderness and Yes normal gait Psych Appearance: grossly normal and well kempt Mental Status: mental status grossly normal Speech and movement: Normal speech and movement present Affect: normal affect Attitude: cooperative Thought process: Normal thought process present Thought content: Normal thought content present Results Reviewed Results Reviewed: Name: Lacy Ann Age/Sex: 62/F : 1960 Unit#: [id number] Attend Dr: Anum Woodard MD Re02/02/23 Status: DEP REF Location: [facility] Disch: SPEC : [id number] GERI: 02/02/23 STATUS: COMP REQ : [id number] RECD: 02/02/[address]: Anum Woodard MD COMP: 02/02/23 ENTERED: 02/02/[address]: ORDERED: CMP Fast, Lipid Panel Test Result Flag Reference Site Sodium 138 135-145 mmol/L Potassium 4.2 3.3-5.1 mmol/L CL 103 96-108 mmol/L CO2 24 22-29 mmol/L Gap 15 12-20 BUN 17 H 9-16 mg/dL Creat 0.77 0.5-1.4 mg/dL EGFR > 60 NOTE: For -[place] individuals, multiply the result by 1.210. Chronic Kidney Disease: Estimated GFR < 60 mL/min/1.73m2 Severe Kidney Disease: Estimated GFR < 15 mL/min/1.73m2 FBS 152 H 60-99 mg/dL A fasting glucose of 126 mg/dl or greater on more than one occasion is considered diagnostic of diabetes. CA 9.7 8.4-10.2 mg/dL Total Bili 0.2 0.0-1.0 mg/dL AST (GOT) 33 H 5-31 U/L ALT (GPT) 51 H 0-31 U/L Protein, Total 6.9 6.5-8.0 g/dL Alb 4.0 3.5-5.0 g/dL Triglyceride 275 H <150 mg/dL Desirable Triglyceride: less than 150 mg/dL Borderline High Triglyceride 150-199 mg/dL High Triglyceride: 200-499 mg/dL Very High Triglyceride: greater than or equal to 5OO mg/dL Cholesterol 177 <200 mg/dL Desirable Cholesterol: less than 200 mg/dL Borderline High Cholesterol: 200-239 mg/dL High Cholesterol: greater than 239 mg/dL LDL Calculated 75 <100 mg/dL Desirable LDL: less than 100 mg/dL Near Optimal/Above Optimal LDL: 110-129 mg/dL Borderline High LDL: 130-159 mg/dL High LDL: 160-189 mg/dL Very High LDL: greater than or equal to 190 mg/dL HDL 47 >40 mg/dL Desirable HDL: greater than 40 mg/dL Note: This HDL assay may give artificially low results in patients with liver disease. Alk Phos 55 39-117 U/L END OF REPORT Laboratory Tests 02/02/23 09:41 Estimat Average Glucose 146 Hemoglobin A1c % 6.7 H Assessment and Plan Assessment & Plan (1) Annual visit for general adult medical examination with abnormal findings: Code(s): Z00.01 - Encounter for general adult medical examination with abnormal findings Plan: Reviewed recent fasting labs with patient.. Recommended dental visit every 6 months and regular eye exams every year for her diabetes retinopathy screening. Take adequate calcium in diet and vitamin-D 3 at 2000 IU per cap once a day, in addition to weight-bearing exercises to help maintain good muscle tone and weight control. Instructed to do self-breast exam, and continue to get yearly mammogram,. Referred to GI for her screening colonoscopy. A referral was also made for her to see [facility] again for her cervical cancer screening and pelvic exam Reminded to get her COVID booster and advised to get flu vaccine but patient declined. Referred (2) Essential hypertension: Code(s): I10 - Essential (primary) hypertension Plan: Blood pressure at goal of less than 130/80. Continue with current medication. Reinforced importance of following a low sodium diet, getting regular exercise, and lowering stress levels. (3) Generalized anxiety disorder: Code(s): F41.1 - Generalized anxiety disorder Plan: Stable controlled on sertraline, buspirone and quetiapine (4) Morbid obesity: Code(s): E66.01 - Morbid (severe) obesity due to excess calories Plan: Discussed need to increase activity and weight reduction. Recommended focusing on improving health instead of dieting. Mediterranean diet is a healthy diet that helps, limit food high in fat, sugar, and calories. Eat slowly, pay attention to portion sizes, plan your meals ahead of time, start regular physical activity, at least 150 minutes of moderate intensity exercise, or 90 minutes per week of vigorous exercise. Keeping a food diary, tracking what you eat and your physical activity can help assess what improvements you can make. There are many health problems associated with being overweight/obese, so it is important to improve your diet and exercise. (5) Insomnia: Code(s): G47.00 - Insomnia, unspecified Plan: Currently on quetiapine (6) Seizure disorder: Code(s): G40.909 - Epilepsy, unspecified, not intractable, without status epilepticus Plan: Followed by [facility] Neurology, continued on levetiracetam 500 mg 1 tab twice a day, has not had any seizure episode since that initial 1 (7) Vitamin D deficiency: Code(s): E55.9 - Vitamin D deficiency, unspecified Plan: Continue with vitamin-D 3 supplement, available [id number] at 2000 units daily (8) Mixed dyslipidemia: Code(s): E78.2 - Mixed hyperlipidemia Plan: Reviewed recent fasting lipid profile with patient with levels within normal limits . Continue with rosuvastatin 5 mg daily , in addition to adherence to low-cholesterol diet and regular exercise, at least 30 minutes 3 to 4 times a week. Advised patient to make healthy food choices, eat more fruits, vegetables, whole grains, wild caught fish and low-fat dairy. Limit amount of meat and fried or fatty food products, as well as processed foods and fast foods. Follow-up scheduled with repeat fasting lipid panel in months. (9) Diabetes mellitus with microalbuminuria, without long-term current use of insulin: Code(s): E11.29 - Type 2 diabetes mellitus with other diabetic kidney complication; R80.9 - Proteinuria, unspecified Plan: Recent lab results reviewed with patient, with sugar and hemoglobin A1c stable and at goal. Continue with Metformin 500 mg twice a day, continue to check fasting blood sugar at home, maintain log and bring to next appointment for review. Reinforced diabetic diet and regular exercise with patient. Counseled regarding importance of yearly diabetes retinopathy screening, patient states that she will to schedule own appointment. Patient advised to inspect feet daily, for any signs of injury, callus or infection. Compliance with diet and regular exercise again stressed. Blood pressure goal is less than 130/80, goal LDL is less than 100 and goal hemoglobin A1c is less than 7% follow-up appointment made in-3--months, after fasting labs done. (10) Post laminectomy syndrome: Code(s): M96.1 - Postlaminectomy syndrome, not elsewhere classified Plan: Short supply of tramadol given to patient 50 mg take 1 tablet once or twice a day as needed for severe pain, 10 tablets prescribed with no refill and will temporarily increase her dose of carisoprodol to 1 tablet twice a day as needed for painful muscle spasm, 40 tablets prescribed with no refill. Advised application of moist heat to affected area, return to the clinic if no improvement of symptoms noted (11) Colon cancer screening: Code(s): Z12.11 - Encounter for screening for malignant neoplasm of colon Plan: Referred to GI (12) Cervical cancer screening: Code(s): Z12.4 - Encounter for screening for malignant neoplasm of cervix Plan: Referred to [facility] (13) Influenza vaccine refused: Code(s): Z28.21 - Immunization not carried out because of patient refusal Orders: Orders Hemoglobin A1c 3 Months E11. - Type 2 diabetes mellitus with other diabetic kidney complication, E55.9 - Vitamin D deficiency, unspecified, E78.2 - Mixed hyperlipidemia, I10 - Essential (primary) hypertension, R80.9 - Proteinuria, unspecified Lipid Panel 3 Months . - Type 2 diabetes mellitus with other diabetic kidney complication, E55.9 - Vitamin D deficiency, unspecified, E78.2 - Mixed hyperlipidemia, I10 - Essential (primary) hypertension, R80.9 - Proteinuria, unspecified Basic Metabolic Panel Fasting 3 Months . - Type 2 diabetes mellitus with other diabetic kidney complication, E55.9 - Vitamin D deficiency, unspecified, E78.2 - Mixed hyperlipidemia, I10 - Essential (primary) hypertension, R80.9 - Proteinuria, unspecified Alanine Aminotransferase 3 Months . - Type 2 diabetes mellitus with other diabetic kidney complication, E55.9 - Vitamin D deficiency, unspecified, E78.2 - Mixed hyperlipidemia, I10 - Essential (primary) hypertension, R80.9 - Proteinuria, unspecified Aspartate Amino Transferase 3 Months E11.29 - Type 2 diabetes mellitus with other diabetic kidney complication, E55.9 - Vitamin D deficiency, unspecified, E78.2 - Mixed hyperlipidemia, I10 - Essential (primary) hypertension, R80.9 - Proteinuria, unspecified Vitamin D 25-OH Total 3 Months E11.29 - Type 2 diabetes mellitus with other diabetic kidney complication, E55.9 - Vitamin D deficiency, unspecified, E78.2 - Mixed hyperlipidemia, I10 - Essential (primary) hypertension, R80.9 - Proteinuria, unspecified Referrals Gastroenterology Referral Z00.01 - Encounter for general adult medical examination with abnormal findings, Z12.11 - Encounter for screening for malignant neoplasm of colon [employer] Referral Z00.01 - Encounter for general adult medical examination with abnormal findings, Z12.4 - Encounter for screening for malignant neoplasm of cervix Medications: New tramadol 50 mg PO BID PRN 10 tabs 0RF pain Changed From carisoprodol 350 mg PO BEDTIME PRN 20 tabs 0RF muscle pain To carisoprodol 350 mg PO BID PRN 40 tabs 0RF Painful muscle spasm Coding Level of Care Code Est Pt Prev Care 40-64y([id number]) Diagnoses Annual visit for general adult medical examination with abnormal findings Z00.01 Essential hypertension I10 Generalized anxiety disorder F41.1 Morbid obesity E66.01 Insomnia G47.00 Seizure disorder G40.909 Vitamin D deficiency E55.9 Mixed dyslipidemia E78.2 Diabetes mellitus with microalbuminuria, without long-term current use of insulin E11.29; R80.9 Post laminectomy syndrome M96.1 Colon cancer screening Z12.11 Cervical cancer screening Z12.4 Influenza vaccine refused Z28.21
[2023-02-27 08:02] VITALS: BP 120/90; PULSE 73; O2SAT 97; BMI 49.1
== END 2023-02-27 08:49 | disposition home or self-care (01) ==
PROVIDERS: Visit Provider Internal Medicine
DX: Z00.00 Encounter for general adult medical examination without abnormal findings (principal); E66.01 Morbid (severe) obesity due to excess calories; G40.909 Epilepsy, unspecified, not intractable, without status epilepticus; E11.29 Type 2 diabetes mellitus with other diabetic kidney complication; Z68.42 Body mass index [BMI] 45.0-49.9, adult; I10 Essential (primary) hypertension; M96.1 Postlaminectomy syndrome, not elsewhere classified; F41.1 Generalized anxiety disorder; G47.00 Insomnia, unspecified; E55.9 Vitamin D deficiency, unspecified; E78.2 Mixed hyperlipidemia; R80.9 Proteinuria, unspecified
CPT/HCPCS: 99396